=== PATIENT | female | born 1980 | race Caucasian/White ===

== ENCOUNTER 2019-03-03 12:17 | Emergency (ER) | payer MEDICAID, SELFPAY ==
[2019-03-03 12:17] VITALS: BP 130/87; PULSE 91; RESP 18; TEMP 36.6; O2SAT 96; BMI 45.4
[2019-03-03 13:56] LABS: Absolute Lymphocyte Count 2.16 X10^3/uL (0.83-4.51); Absolute Neutrophil Count 6.6 X10^3/uL (2.0-7.7); Basophil# 0.04 X10^3/uL; Basophil% 0.4 % (0-1); Eosinophil# 0.19 X10^3/uL; Hematocrit 38.1 % (37-47); Hemoglobin 12.7 g/dL (12.0-15.0); Lymphocyte # 2.16 X10^3/ul (4.0); Lymphocyte % 22.9 % (19-41); Mean Corp Hgb Conc 33.3 g/dL (32-36); Mean Corpuscular Hgb 26.6 pg (27.0-32.0); Mean Corpuscular Volume 79.9 fL (81-99); Mean Platelet Vol. 10.3 fl (6.2-12.0); Monocyte# 0.36 X10^3/uL; Monocyte% 3.8 % (0-10); NRBC Flagged by Analyzer 0 % (0-5); Neutrophil # 6.61 X10^3/uL (2.7-7.7); Neutrophil % 70.1 % (47-70); POSITIVE COUNT YES; Platelet Count 217 K/mm3 (150-450); RBC Distribution Width CV 13.6 % (11.6-14.6); RBC Distribution Width SD 38.7 fl (35.1-43.9); Red Blood Count 4.77 M/mm3 (4.2-5.4); White Blood Count 9.4 K/mm3 (4.4-11.0)
[2019-03-03 13:58] LABS: Differential Indicated SCAN CRITERIA MET
[2019-03-03 14:05] LABS: ALB/GLOB Ratio 0.9 RATIO (0.9-2.4); AST(SGOT) 9 U/L (15-37); Alanine Aminotransfer ALT/SGPT 18 U/L (13-56); Albumin, Serum 3.4 g/dL (3.2-5.0); Alkaline Phosphatase 158 U/L (45-117); Anion Gap 6 (5-15); BUN 7 mg/dL (7-18); Chloride 105 mmol/L (98-107); Creatinine, Serum 0.64 mg/dL (0.55-1.02); EST Glomerular Filtration Rate 109 mL/min (>60); Est Glom Filt Rate - Afr Amer 132 mL/min (>60); Estimated Creatinine Clearance 95.69 ml/min; Globulin 3.9 g/dL (2.2-4.2); Glucose 183 mg/dL (74-106); Lipase 92 U/L (73-393); Potassium 3.7 mmol/L (3.5-5.1); Protein, Total 7.3 g/dL (6.4-8.2); Sodium Level 139 mmol/L (136-145)
[2019-03-03] MEDS: Ondansetron 4 MG/2 ML Vial IV (14:08)
[2019-03-03] MEDS: Morphine 4 MG/ML Syringe IV (14:08)
[2019-03-03] MEDS: 0.9% Normal Saline 1,000 ML 1000 ML IV (14:08)
--- NOTE | 2019-03-03 14:11 | ED.VIS.GEN ---
History of Present Illness Chief Complaint: Back Informant: Patient Onset: Yesterday Context: Gradual Onset Timing: Continuous Narrative: Patient is a 39-year-old female with history of bladder infections, diabetes mellitus and depression presenting with decreased urination, lower abdominal pain and lower back pain. She states her symptoms are last night. She is associated nausea but no vomiting. She states her bowel movements been normal. She is had burning with urination. She describes the pain as sharp. It does not radiate. Last night she took ibuprofen, Pyridium and Tylenol with no significant relief of her symptoms. She denies any numbness of her legs, fever or incontinence. She notes she sometimes has some stress incontinence which is chronic when she coughs. This is unchanged. She did urinate this morning but notes that there was less urine. Patient denies any other complaints at this time. Past Medical History - Allergies and Home Meds Allergies/Adverse Reactions: Allergies brompheniramine maleate [From Dimetapp (brompheniramine-PPA)] Allergy (Verified 03/03/19 12:19) Rash bupropion [From Wellbutrin] Allergy (Verified 03/03/19 12:19) Other phenylpropanolamine HCl [From Dimetapp (brompheniramine-PPA)] Allergy (Verified 03/03/19 12:19) Rash prochlorperazine [From Compazine] Allergy (Verified 03/03/19 12:19) Other prochlorperazine edisylate [From Compazine] Allergy (Verified 03/03/19 12:19) Other prochlorperazine maleate [From Compazine] Allergy (Verified 03/03/19 12:19) Other Primary Care Physician: Jeanette Cortes PA [Primary Care Provider] - Past Medical History: - - Diabetes mellitus, depression, history of bladder infections Surgical History: hysterectomy, tonsillectomy, - - Bladder mesh Smoking Status: Never smoker Review of Systems General: Denies: Chills, Fever, Sweats Eyes: Denies: Visual changes - bilaterally, Diplopia ENT: Denies: Rhinorrhea, Sore throat Cardiovascular: Denies: Chest pain, Palpitations Respiratory: Denies: Dyspnea, Cough, Dyspnea on exertion Gastrointestinal: Reports: Abdominal pain, Nausea. Denies: Vomiting, Diarrhea, Constipation, Melena, Hematochezia Genitourinary: Reports: Dysuria, - - Decreased urination. Denies: Hematuria, Frequency Musculoskeletal: Reports: Back pain. Denies: Extremity Pain Skin: Denies: Rash, Wounds Neurological: Denies: Headache, Weakness, Numbness Physical Exam Vital Signs/Narrative: Vital Signs Temp Pulse Resp BP Pulse Ox 03/03/19 12:17 97.8 F 91 18 130/87 H 96 Inital Vital Signs reviewed: Yes General: Well nourished, Well developed, No Acute Distress Head: Normocephalic, Atraumatic Eyes: Perrl, EOMI ENT: Moist mucous membranes, No rhinorrhea Neck: Supple, Nontender Cardiovascular: Regular rate, Regular rhythm, No murmurs Respiratory: No distress, CTA bilaterally, Chest nontender Abdomen: Soft, Nontender, Nondistended, Normal bowel sounds, Tender - Suprapubic region as well as left upper quadrant. Negative for: Guarding, Rebound tenderness Back: Nontender, Normal Inspection. Negative for: CVA tenderness, Spinal tenderness Extremities: Nontender, No edema Skin: Normal color, No rash Neurological: Alert, Oriented x3, Cranial nerves II-XII grossly intact, Normal Strength, Normal Sensation Psychological: Normal affect, Normal Mood Diagnostic/Tx/Re-eval Laboratory Data 03/03/19 03/03/19 03/03/19 13:18 13:18 15:30 WBC 9.4 RBC 4.77 Hgb 12.7 Hct 38.1 MCV 79.9 L MCH 26.6 L MCHC 33.3 RDW Std Deviation 38.7 RDW Coeff of Samantha 13.6 Plt Count 217 MPV 10.3 Immature Gran % (Auto) 0.800 Neut % (Auto) 70.1 H Lymph % (Auto) 22.9 Loving % (Auto) 3.8 Eos % (Auto) 2.0 Baso % (Auto) 0.4 Absolute Neuts (auto) 6.6 Absolute Lymphs (auto) 2.16 Nucleated RBC % 0 Sodium 139 Potassium 3.7 Chloride 105 Carbon Dioxide 28.0 Anion Gap 6 BUN 7 Creatinine 0.64 Estim Creat Clear Calc 95.69 Est GFR (MDRD) Af Amer 132 Est GFR (MDRD) Non-Af 109 BUN/Creatinine Ratio 11.0 Glucose 183 H Calcium 9.0 Total Bilirubin 0.30 AST 9 L ALT 18 Alkaline Phosphatase 158 H Total Protein 7.3 Albumin 3.4 Globulin 3.9 Albumin/Globulin Ratio 0.9 Lipase 92 Urine Color Yellow Urine Clarity Sl. Cloudy Urine pH 5.0 Ur Specific [place] 1.025 Urine Protein 15 H Urine Glucose (UA) 100 H Urine Ketones Negative Urine Occult Blood Negative Urine Nitrite Positive H Urine Bilirubin Negative Urine Urobilinogen Normal Ur Leukocyte Esterase Negative Urine RBC 0 SEEN Urine WBC 0-5 SEEN Ur Squamous Epith Cells 0-5 SEEN Amorphous Sediment 1+ URATE Urine Bacteria 2+ Urine Mucus 0 SEEN - Medical Decision Making Patient is evaluate her abdominal pain. She has associated urinary symptoms and low back pain. Her presentation sounds like a urinary tract infection. Bladder scan was performed and she only has 150 cc of urine in the bladder. I do not think this is acute urinary retention. While patient is having significant pain her vital signs are normal. Her white blood cell count is normal. Her abdomen is soft but she does have lower abdominal tenderness. She does have CVA tenderness. Patient is given morphine and then Dilaudid for pain control in the emergency room. Urinalysis does show nitrates and bacteria. Likely this is a urinary tract infection. Patient will be started on Keflex. Urine culture is sent. She is put on a 7-day course to cover for possible early pyelonephritis. She is given a short course of [place] for pain control at home. She is also prescribed on a dose of Diflucan as she states she is prone to yeast infections after antibiotics. Patient is counseled on signs and symptoms require return emergency room. She verbalizes agreement understand this plan. She discharged home in stable condition. ED Disposition - Plan for ED Patient: Disposition: Home or Assisted Living Diagnosis: UTI (urinary tract infection), Abdominal pain Instructions: Bladder Infection, Female (Adult) Prescriptions: Fluconazole [Diflucan] 150 mg PO X1 #1 tab Transmission Status: Received by [id number] Cephalexin [Keflex] 500 mg PO BID #14 cap Transmission Status: Received by [facility] [id number] Hydrocodone Bitart/Apap 5-325 [[place] 5MG-325MG] 1 tab PO Q6H PRN PRN 2 Days #10 tab PRN Reason: Pain Transmission Status: Received by [facility] [id number] Phenazopyridine HCl [Pyridium] 200 mg PO TID PRN #6 tab PRN Reason: pain with urination Transmission Status: Received by [id number] Referrals: Jeanette Cortes PA [Primary Care Provider] - Additional Instructions: Please return the emergency room if you have worsening symptoms. Your work-up was normal except for findings consistent with urinary tract infection. Please follow-up with your primary care doctor next week for reevaluation.
[2019-03-03 14:24] VITALS: BP 126/69; PULSE 78; RESP 16; O2SAT 99
[2019-03-03] MEDS: HYDROmorphone 0.5 MG/0.5 ML SYRINGE IV (15:32)
[2019-03-03 15:35] LABS: Mucous, Urine 0 SEEN /hpf (<or=2+); Red Blood Cells-Urine 0 SEEN /hpf (0-5)
[2019-03-03 15:38] LABS: Color, Urine Yellow (Yellow); Glucose, Dipstick 100 mg/dl (Normal); Ketone-Dipstick Negative (Negative); Leukocyte Esterase-Dipstick Negative /ul (Negative); Nitrite-Dipstick Positive (Negative); Occult Blood-Urine Negative /ul (Negative); Protein-Dipstick 15 mg/dl (Negative); Specific Gravity, Urine 1.025 (1.002-1.030); Urine Bilirubin Dipstick Negative (Negative); Urine Clarity Sl. Cloudy (Clear); Urine Urobilinogen Normal (Normal)
[2019-03-03 15:50] LABS: Amorphous Sediment 1+ URATE; Bacteria 2+ /hpf (None Seen); Squamous Epithelial Cells - UA 0-5 SEEN /hpf (5-10); White Blood Cells 0-5 SEEN /hpf (0-5)
[2019-03-03 17:01] VITALS: BP 137/84; PULSE 78; RESP 16; O2SAT 98
[2019-03-03] MEDS: Cephalexin 250 MG Capsule 500 MG PO (17:22)
== END 2019-03-03 17:23 | disposition home or self-care (01) ==
PROVIDERS: Emergency Provider Emergency Medicine; Family Provider Physician Assistant Medical; PCP Physician Assistant Medical
DX: N39.0 Urinary tract infection, site not specified (principal); R10.12 Left upper quadrant pain; E11.9 Type 2 diabetes mellitus without complications; F32.9 Major depressive disorder, single episode, unspecified; Z79.4 Long term (current) use of insulin; Z79.84 Long term (current) use of oral hypoglycemic drugs; Z87.440 Personal history of urinary (tract) infections
CPT/HCPCS: 80053; 81001; 83690; 85025; 96361; 96374; 96375; 99285; J7030; P9612; A4216; J2405

== ENCOUNTER 2019-03-18 16:28 | Emergency (ER) | payer MEDICAID, SELFPAY ==
[2019-03-18 16:29] VITALS: BP 133/111; PULSE 90; RESP 17; TEMP 36.7; O2SAT 98; BMI 44.4
[2019-03-18 16:40] LABS: Bedside Glucose 201 mg/dL (70-110)
--- NOTE | 2019-03-18 17:21 | EKG12_ITS ---
Test Reason : GEN ILLNESS Blood Pressure : / mmHG Vent. Rate : 070 BPM Atrial Rate : 070 BPM P-R Int : 154 ms QRS Dur : 076 ms QT Int : 410 ms P-R-T Axes : 031 -12 026 degrees QTc Int : 442 ms Normal sinus rhythm with sinus arrhythmia Minimal voltage criteria for LVH, may be normal variant Borderline ECG Confirmed by JAMIE WASHINGTON, VIVIAN ([id number]), script editor DALLIN HASTINGS ([id number]) on 03/21/2019 12:16:59 PM Referred By: BRADEN Confirmed By:VIVIAN AYALA MD
--- NOTE | 2019-03-18 17:25 | RAD_ITS ---
STUDY: X-RAY CHEST REASON FOR EXAM: Female, 39 years old. DIZZINESS AND HYPERTENSION TECHNIQUE: Single AP portable view of the chest. COMPARISON: None. FINDINGS: The lungs are clear and expanded. There is no demonstrated pleural abnormality. Normal size heart. Normal mediastinum and cassie. Normal visualized pulmonary arteries. Normal visualized aortic arch and descending thoracic aorta. Normal visualized thoracic spine. Normal visualized ribs, clavicles, and shoulders. There is no demonstrated abnormality of the visualized soft tissue structures of the upper abdomen. RAD/Chest 1 View (Portable) IMPRESSION: Normal x-ray examination of the chest. Electronically Signed: Gilson Renteria DO at 17:50 EST Tel , Service support ,
--- NOTE | 2019-03-18 17:32 | ED.RN ---
NO OLD EKGS
[2019-03-18] MEDS: 0.9% Normal Saline 1,000 ML 1000 ML IV (17:42)
[2019-03-18] MEDS: Ketorolac 15 MG/ML Vial IV (17:42)
[2019-03-18 17:59] LABS: Absolute Lymphocyte Count 2.73 X10^3/uL (0.83-4.51); Absolute Neutrophil Count 7.1 X10^3/uL (2.0-7.7); Basophil# 0.04 X10^3/uL; Basophil% 0.4 % (0-1); Eosinophil# 0.17 X10^3/uL; Eosinophils% 1.6 % (0-5); Hematocrit 41.1 % (37-47); Hemoglobin 13.8 g/dL (12.0-15.0); Lymphocyte # 2.73 X10^3/ul (4.0); Lymphocyte % 25.9 % (19-41); Mean Corp Hgb Conc 33.6 g/dL (32-36); Mean Corpuscular Hgb 26.7 pg (27.0-32.0); Mean Corpuscular Volume 79.5 fL (81-99); Mean Platelet Vol. 9.5 fl (6.2-12.0); Monocyte# 0.43 X10^3/uL; Monocyte% 4.1 % (0-10); NRBC Flagged by Analyzer 0 % (0-5); Neutrophil # 7.12 X10^3/uL (2.7-7.7); Neutrophil % 67.6 % (47-70); Platelet Count 293 K/mm3 (150-450); RBC Distribution Width CV 13.3 % (11.6-14.6); RBC Distribution Width SD 37.9 fl (35.1-43.9); Red Blood Count 5.17 M/mm3 (4.2-5.4); White Blood Count 10.5 K/mm3 (4.4-11.0)
[2019-03-18] MEDS: Metoclopramide 10 MG/2 ML Vial 5 MG IV (18:07)
[2019-03-18 18:18] LABS: Anion Gap 6 (5-15); BUN 11 mg/dL (7-18); BUN/Creat Ratio 13.9 RATIO (10-20); Calcium,Total 9.5 mg/dL (8.5-10.1); Chloride 104 mmol/L (98-107); Creatinine, Serum 0.79 mg/dL (0.55-1.02); EST Glomerular Filtration Rate 85 mL/min (>60); Est Glom Filt Rate - Afr Amer 103 mL/min (>60); Estimated Creatinine Clearance 77.52 ml/min; Glucose 186 mg/dL (74-106); Potassium 3.5 mmol/L (3.5-5.1); Sodium Level 139 mmol/L (136-145)
[2019-03-18 18:32] LABS: hCG Titer Quant., Serum < 1 mIU/mL (1-3)
--- NOTE | 2019-03-18 18:53 | ED.DCSUM_ITS ---
History of Present Illness Chief Complaint: General Illness Informant: Patient Onset: Today Context: Sudden Onset Narrative: Patient is a 39-year-old female with history of diabetes mellitus and depression presenting with headache and presyncope. Patient states she was at work today when she had a headache. She states is typical of her to have headaches and this is abnormal 1 for her. She denies any associated photophobia. She states that she was trying to work she was feeling very hot and sweaty and felt like she might pass out. She checked her blood sugar at work and was 119 her blood pressure was elevated at 155/114. Repeat blood pressure was 145/100. Patient states she still feels nauseous and will shaky. She states she has had prior episodes with her sugars been out of control. Patient denies any associated vision changes, vomiting, chest pain, shortness of breath, fever, myalgias or urinary symptoms. She states she is had normal bowel movements. Her main complaint seems to be her headache at this point. She denies any other complaints at this time. Past Medical History - Allergies and Home Meds Allergies/Adverse Reactions: Allergies brompheniramine maleate [From Dimetapp (brompheniramine-PPA)] Allergy (Verified 03/18/19 16:28) Rash bupropion [From Wellbutrin] Allergy (Verified 03/18/19 16:28) Other phenylpropanolamine HCl [From Dimetapp (brompheniramine-PPA)] Allergy (Verified 03/18/19 16:28) Rash prochlorperazine [From Compazine] Allergy (Verified 03/18/19 16:28) Other prochlorperazine edisylate [From Compazine] Allergy (Verified 03/18/19 16:28) Other prochlorperazine maleate [From Compazine] Allergy (Verified 03/18/19 16:28) Other Primary Care Physician: Jeanette Cortes PA [Primary Care Provider] - Past Medical History: - - Diabetes mellitus type II, gastroparesis, depression Surgical History: hysterectomy, tonsillectomy, - - Bladder mesh Smoking Status: Never smoker Review of Systems General: Reports: Sweats. Denies: Chills, Fever Eyes: Denies: Visual changes - bilaterally, Diplopia ENT: Denies: Rhinorrhea, Sore throat Cardiovascular: Denies: Chest pain, Palpitations Respiratory: Denies: Dyspnea, Cough, Dyspnea on exertion Gastrointestinal: Reports: Nausea. Denies: Abdominal pain, Vomiting, Diarrhea, Melena, Hematochezia Genitourinary: Denies: Dysuria, Hematuria, Frequency Musculoskeletal: Denies: Back pain, Extremity Pain Skin: Denies: Rash, Wounds Neurological: Denies: Headache, Weakness, Numbness Physical Exam Vital Signs/Narrative: Vital Signs Temp Pulse Resp BP Pulse Ox 03/18/19 16:29 98.1 F 90 17 133/111 H 98 Inital Vital Signs reviewed: Yes General: Well nourished, Well developed, Obese, No Acute Distress Head: Normocephalic, Atraumatic Eyes: Perrl, EOMI ENT: Moist mucous membranes, No rhinorrhea Neck: Supple, Nontender Cardiovascular: Regular rate, Regular rhythm, No murmurs Respiratory: No distress, CTA bilaterally, Chest nontender Abdomen: Soft, Nontender, Nondistended, Normal bowel sounds, No masses. Negative for: Guarding, Rebound tenderness Back: Nontender, Normal Inspection. Negative for: CVA tenderness Extremities: Nontender, No edema Skin: Normal color, No rash Neurological: Alert, Oriented x3, Cranial nerves II-XII grossly intact, Normal Strength, Normal Sensation Psychological: Normal affect, Normal Mood Diagnostic/Tx/Re-eval Clinical Impression(s) from Imaging Studies Chest X-Ray 03/18/19 17:25 IMPRESSION: Normal x-ray examination of the chest. Electronically Signed: Gilson Renteria DO at 17:50 EST Tel , Service support , Laboratory Data 03/18/19 03/18/19 03/18/19 16:34 17:50 17:50 WBC 10.5 RBC 5.17 Hgb 13.8 Hct 41.1 MCV 79.5 L MCH 26.7 L MCHC 33.6 RDW Std Deviation 37.9 RDW Coeff of Samantha 13.3 Plt Count 293 MPV 9.5 Immature Gran % (Auto) 0.400 Neut % (Auto) 67.6 Lymph % (Auto) 25.9 Patrick % (Auto) 4.1 Eos % (Auto) 1.6 Baso % (Auto) 0.4 Absolute Neuts (auto) 7.1 Absolute Lymphs (auto) 2.73 Nucleated RBC % 0 Sodium 139 Potassium 3.5 Chloride 104 Carbon Dioxide 29.0 Anion Gap 6 BUN 11 Creatinine 0.79 Estim Creat Clear Calc 77.52 Est GFR (MDRD) Af Amer 103 Est GFR (MDRD) Non-Af 85 BUN/Creatinine Ratio 13.9 Glucose 186 H Calcium 9.5 Total Bilirubin Direct Bilirubin AST ALT Alkaline Phosphatase Troponin I < 0.015 Total Protein Albumin Globulin Lipase HCG, Quant Urine Color Urine Clarity Urine pH Ur Specific [place] Urine Protein Urine Glucose (UA) Urine Ketones Urine Occult Blood Urine Nitrite Urine Bilirubin Urine Urobilinogen Ur Leukocyte Esterase Urine RBC Urine WBC Ur Squamous Epith Cells Urine Bacteria Urine Mucus POC Glucose 201 H 03/18/19 03/18/19 03/18/19 17:50 17:50 17:50 WBC RBC Hgb Hct MCV MCH MCHC RDW Std Deviation RDW Coeff of Samantha Plt Count MPV Immature Gran % (Auto) Neut % (Auto) Lymph % (Auto) Patrick % (Auto) Eos % (Auto) Baso % (Auto) Absolute Neuts (auto) Absolute Lymphs (auto) Nucleated RBC % Sodium Potassium Chloride Carbon Dioxide Anion Gap BUN Creatinine Estim Creat Clear Calc Est GFR (MDRD) Af Amer Est GFR (MDRD) Non-Af BUN/Creatinine Ratio Glucose Calcium Total Bilirubin 0.20 Direct Bilirubin 0.08 AST 10 L ALT 21 Alkaline Phosphatase 181 H Troponin I Total Protein 8.0 Albumin 3.9 Globulin 4.1 Lipase 111 HCG, Quant < 1 Urine Color Urine Clarity Urine pH Ur Specific [place] Urine Protein Urine Glucose (UA) Urine Ketones Urine Occult Blood Urine Nitrite Urine Bilirubin Urine Urobilinogen Ur Leukocyte Esterase Urine RBC Urine WBC Ur Squamous Epith Cells Urine Bacteria Urine Mucus POC Glucose 03/18/19 19:50 WBC RBC Hgb Hct MCV MCH MCHC RDW Std Deviation RDW Coeff of Samantha Plt Count MPV Immature Gran % (Auto) Neut % (Auto) Lymph % (Auto) Patrick % (Auto) Eos % (Auto) Baso % (Auto) Absolute Neuts (auto) Absolute Lymphs (auto) Nucleated RBC % Sodium Potassium Chloride Carbon Dioxide Anion Gap BUN Creatinine Estim Creat Clear Calc Est GFR (MDRD) Af Amer Est GFR (MDRD) Non-Af BUN/Creatinine Ratio Glucose Calcium Total Bilirubin Direct Bilirubin AST ALT Alkaline Phosphatase Troponin I Total Protein Albumin Globulin Lipase HCG, Quant Urine Color Yellow Urine Clarity Sl. Cloudy Urine pH 5.0 Ur Specific [place] 1.025 Urine Protein 30 H Urine Glucose (UA) 1000 H Urine Ketones 5 H Urine Occult Blood Negative Urine Nitrite Negative Urine Bilirubin Negative Urine Urobilinogen Normal Ur Leukocyte Esterase Negative Urine RBC 0 SEEN Urine WBC 0-5 SEEN Ur Squamous Epith Cells 5-10 SEEN Urine Bacteria 0 SEEN Urine Mucus 0 SEEN POC Glucose - Rhythm Strip Rhythm Strip: Sinus Rhythm Rate: 70 Ectopy: None - EKG Initial EKG Interpretation: Sinus Rhythm, - - Sinus rhythm at a rate of 70 Normal intervals Left axis deviation Normal ST segments - Medical Decision Making Patient is evaluated for an episode of dizziness and feeling sweaty at work. Also complaining of nausea and headache. Patient states she has a history of headaches and this is her typical headache. She has a normal neurologic exam I do not think a CT of the brain is indicated. She does not have meningeal signs. Patient is given Toradol, Reglan and Benadryl. After patient receives the Benadryl and about an hour after receiving the Reglan patient becomes very jittery. Likely she is having akathisia's. Patient is then given a dose of benztropine. On reevaluation she states her headache has improved and she is feeling less antsy. She is now complaining of more nausea. Patient is requesting Phenergan. She is given a dose of this. She is not having any abdominal pain and her abdomen is still benign on exam. Patient then mentions that she actually has a history of gastroparesis. Likely her nausea is from her gastroparesis. Patient has a normal CBC, CMP and lipase. Urinalysis not show any signs of infection. I do not think imaging of her abdomen is indicated at this time as she does not have any pain or laboratory abnormalities. On reevaluation patient states she is feeling better and is ready to go home as she wants to go eat dinner. She is given IV fluids as well in the emergency room. Patient is counseled on signs and symptoms requiring return the emergency room. She is given a dose of Bentyl prior to discharge. She is discharged home with a prescription for Zofran, Phenergan and Bentyl. Patient is counseled on signs and symptoms requiring return to the emergency room. Patient verbalizes agreement and understand this plan. Patient discharged home in stable and improved condition. ED Disposition - Plan for ED Patient: Disposition: Home or Assisted Living Diagnosis: Dizziness, Nausea Instructions: DIZZINESS, Unk Cause, ED Diabetic Gastroparesis Prescriptions: Dicyclomine HCl [Bentyl] 20 mg PO TIDAC #20 cap Transmission Status: Received by [facility] [id number] proMETHazine tablet [Phenergan] 25 mg PO Q6H PRN PRN #10 tab PRN Reason: Nausea Transmission Status[facility] Ondansetron [Zofran Odt] 4 mg PO Q8H PRN PRN #10 tab PRN Reason: Nausea Transmission Status[id number] Referrals: Jeanette Cortes PA [Primary Care Provider] - Additional Instructions: Your work-up today including EKG, cardiac markers, kidney function, liver function and signs of infection were all normal. Your glucose is only mildly elevated. He did not have a urinary tract infection. Possible that your symptoms are an exacerbation of your gastroparesis. At this time I think you are safe to follow-up outpatient. Please return the emergency room with any worsening symptoms.
[2019-03-18] MEDS: DiphenhydrAMINE 50 MG/ML Syringe 25 MG IV (18:54)
[2019-03-18] MEDS: Ondansetron 4 MG/2 ML Vial IV (18:55)
[2019-03-18 20:00] LABS: Bacteria 0 SEEN /hpf (None Seen); Mucous, Urine 0 SEEN /hpf (<or=2+); Red Blood Cells-Urine 0 SEEN /hpf (0-5)
[2019-03-18 20:22] LABS: Color, Urine Yellow (Yellow); Glucose, Dipstick 1000 mg/dl (Normal); Ketone-Dipstick 5 mg/dl (Negative); Leukocyte Esterase-Dipstick Negative /ul (Negative); Nitrite-Dipstick Negative (Negative); Occult Blood-Urine Negative /ul (Negative); Protein-Dipstick 30 mg/dl (Negative); Specific Gravity, Urine 1.025 (1.002-1.030); Urine Bilirubin Dipstick Negative (Negative); Urine Clarity Sl. Cloudy (Clear); Urine Urobilinogen Normal (Normal)
[2019-03-18] MEDS: proMETHazine 25 MG/ML Syringe 12.5 MG IV (20:31)
[2019-03-18 20:34] VITALS: BP 118/77; PULSE 88; RESP 16; O2SAT 96
[2019-03-18 20:51] LABS: Lipase 111 U/L (73-393)
[2019-03-18 20:52] LABS: Squamous Epithelial Cells - UA 5-10 SEEN /hpf (5-10); White Blood Cells 0-5 SEEN /hpf (0-5)
[2019-03-18 20:54] LABS: AST(SGOT) 10 U/L (15-37); Alanine Aminotransfer ALT/SGPT 21 U/L (13-56); Albumin, Serum 3.9 g/dL (3.2-5.0); Alkaline Phosphatase 181 U/L (45-117); Bilirubin, Direct 0.08 mg/dL (0.00-0.30); Globulin 4.1 g/dL (2.2-4.2)
[2019-03-18] MEDS: Dicyclomine 10 MG Capsule 20 MG PO (21:14)
[2019-03-18 21:17] VITALS: BP 118/77; PULSE 88; RESP 16; O2SAT 96
== END 2019-03-18 21:24 | disposition home or self-care (01) ==
PROVIDERS: Emergency Provider Emergency Medicine; PCP Physician Assistant Medical
DX: R42 Dizziness and giddiness (principal); R11.0 Nausea; E11.9 Type 2 diabetes mellitus without complications; F32.9 Major depressive disorder, single episode, unspecified; E66.9 Obesity, unspecified; Z79.4 Long term (current) use of insulin; Z79.84 Long term (current) use of oral hypoglycemic drugs
CPT/HCPCS: 71045; 80048; 80076; 81001; 82962; 83690; 84484; 84702; 85025; 93005; 96361; 96374; 96375; 99285; J7030; A4216; J2405

== ENCOUNTER 2022-10-11 11:17 | Emergency (ER) | payer MEDICAID, SELFPAY ==
[2022-10-11 11:19] VITALS: BP 155/86; PULSE 86; RESP 18; TEMP 35.8; O2SAT 98
--- NOTE | 2022-10-11 11:33 | EDS_ITS ---
HPI History of Present Illness Chief Complaint: Wound PFSH [facility] Medical History (Updated 09/22/21 @ 11:35 by Lizzeth Banks) Anxiety and depression Diabetes type 2, controlled GERD (gastroesophageal reflux disease) Headache, migraine High cholesterol IBS (irritable bowel syndrome) Neuropathy surgery of the r toe Home Medications omeprazole 20 mg capsule,delayed release 1 cap PO DAILY 03/10/16 [History Last Taken Unknown] cetirizine 10 mg capsule 10 mg PO QDAY 02/25/17 [History Last Taken Unknown] citalopram 40 mg tablet (Celexa) 40 mg PO QDAY 02/25/17 [History Last Taken Unknown] gabapentin 300 mg capsule 300 mg PO TID 02/25/17 [History Last Taken Unknown] glimepiride 2 mg tablet 2 mg PO QAM #30 tabs 02/25/17 [Rx Last Taken Unknown] hydroxyzine HCl 10 mg tablet 10 mg PO .q hs PRN Anxiety 02/25/17 [History Last Taken Unknown] insulin glargine 100 unit/mL (3 mL) subcutaneous pen ([place] [employer] U-100 Insulin) See Rx Instructions subcut BID #15 mL 02/25/17 [Rx Last Taken Unknown] metformin 1,000 mg tablet 1,000 mg PO DAILY #30 tabs 02/25/17 [Rx Last Taken Unknown] multivitamin 1 tab PO QAM 02/25/17 [History Last Taken Unknown] cephalexin 500 mg capsule 500 mg PO BID #14 caps 03/03/19 [Rx Last Taken Unknown] fluconazole 150 mg tablet 150 mg PO X1 #1 TAB 03/03/19 [Rx Last Taken Unknown] phenazopyridine 200 mg tablet 200 mg PO TID PRN pain with urination #6 tabs 03/03/19 [Rx Last Taken Unknown] dicyclomine 10 mg capsule 20 mg (2 x 10 mg) PO TIDAC #20 caps 03/18/19 [Rx Last Taken Unknown] ondansetron 4 mg disintegrating tablet 4 mg PO Q8H PRN PRN Nausea #10 tabs 03/18/19 [Rx Last Taken Unknown] promethazine 25 mg tablet 25 mg PO Q6H PRN PRN Nausea #10 tabs 03/18/19 [Rx Last Taken Unknown] Allergy/AdvReac Type Severity Reaction Status Date / Time brompheniramine maleate Allergy Rash Verified 03/18/19 16:28 [From Dimetapp (brompheniramine-PPA)] bupropion [From Wellbutrin] Allergy Other Verified 03/18/19 16:28 phenylpropanolamine HCl Allergy Rash Verified 03/18/19 16:28 [From Dimetapp (brompheniramine-PPA)] prochlorperazine Allergy Other Verified 03/18/19 16:28 [From Compazine] prochlorperazine edisylate Allergy Other Verified 03/18/19 16:28 [From Compazine] prochlorperazine maleate Allergy Other Verified 03/18/19 16:28 [From Compazine] Family History Mother Asthma Diabetes Cancer Sister Asthma Diabetes Social History (Updated 03/01/17 @ 11:47 by Carolin Motta BLOW TORCH OPERATOR, BLOW TORCH OPERATOR-C) Smoking Status: Never smoker second hand exposure: Yes alcohol intake: never substance use type: does not use EXAM Physical Exam Const Vital Signs: 10/11/22 11:19 Temperature 96.5 F L Temperature Source Temporal Pulse Rate 86 Respiratory Rate 18 Blood Pressure 155/86 H Blood Pressure Mean 109 Pulse Ox 98 Oxygen Delivery Method Room Air MDM MDM MDM Narrative Medical decision making narrative: HISTORY OF PRESENT ILLNESS: 42-year-old female here with chronic wound to the right foot. Notes over the last year. States she is followed podiatry however the mud analysis supervisor has not met her expectations. She states she has neuropathy and cannot feel her leg well which is chronic. Denies history of peripheral vascular disease or DVT. States last day she thinks is gotten worse she thinks it could be infected REVIEW OF SYSTEMS: Pertinent positives: Right foot wound Pertinent negatives: fever, vomiting. PHYSICAL EXAM: Nursing triage notes reviewed, Vital signs reviewed Constitutional: please see mdm Lungs: Clear to auscultation, No wheezing or rales. No increased work of breathing, no conversational dyspnea, no accessory muscle use, no nasal flaring. No respiratory distress noted Heart: Regular rate and rhythm, No murmurs, No rubs and No gallops, 2+ distal pulses (radial, femoral, posterior tibial) in all extremities Abdomen: Soft, there is no tenderness, rigidity, rebound or guarding, no obvious peritoneal signs, no palpable pulsatile abdominal masses, no auscultated abdominal bruit Extremities: No edema Neuro: No focal neurological deficits, cranial nerves II through XII intact, 5/5 strength in all extremities. Intact sensation to light touch in all extremities, 2+ reflexes bilateral patella tendons. Normal gait. No ataxia. Skin: Chronic appearing wound to the plantar surface of the right foot, no erythema, no drainage, no fluctuance, no induration, the wound was not warm. MEDICAL DECISION MAKING: Chief Complaint: Chronic foot wound External records reviewed: No recent ED visits Factors affecting care: Type 2 diabetes, chronic foot wound Social determinants of health: none History obtained from others: The patient's daughter Consults: none ALL IMAGES (IF OBTAINED) HAVE BEEN PERSONALLY REVIEWED AND INTERPRETED BY MYSELF. MDM Narrative: Patient is hemodynamically stable, afebrile, nontoxic-appearing. I considered the following differential diagnosis: Cellulitis, necrotizing fasciitis, arterial occlusion Exam not consistent with cellulitis as there is no redness, warmth or drainage. There is no crepitus or bullae suggest necrotizing fasciitis, patient had symmetric pulses, good cap refill no evidence of arterial occlusion. Did offer the patient prophylactic antibiotics given history of diabetes and her high risk propensity for infections including history of MRSA. She stated she cannot take oral antibiotics because she gags on them. I did offer oral solution ant ibiotics and lieu of her not being able to take pills. She was discharged with close wound care follow-up The patient and/or family, caregivers express understanding. The patient and/or family, caregivers agrees with the plan. Shared decision making: I will have a discussion with the patient and or visitors regarding risk/benefits of further testing or admission. They will be made aware of of the risk/benefits inherent in this decision they will be given the opportunity to voice understanding. Total critical care time today provided was at least 0 minutes. This excludes separately billable procedures. Critical care time (if documented) is secondary to the patient having high probability of clinically significant/life threatening deterioration in the patient's condition which required my urgent intervention. Discharge Plan Triage Chief Complaint: Wound ED Provider: Randal Poole Dx/Rx/DC Orders Prescriptions: No Action metformin 1,000 MG tablet 1,000 mg PO DAILY Qty: 30 11RF glimepiride 2 mg tablet 2 mg PO QAM Qty: 30 5RF Rx Instructions: administer with breakfast. Start with 1/2 tablet for first few days insulin glargine [Basaglar KwikPen U-100 Insulin] 100 unit/mL (3 mL) insulin pen See Rx Instructions SC BID Qty: 15 11RF Dose Instruction: 20U q am and 30 U q hs SC BID Rx Instructions: 20U q am and 30 U q hs SC BID gabapentin 300 mg capsule 300 mg PO TID citalopram [Celexa] 40 mg tablet 40 mg PO QDAY cetirizine 10 mg capsule 10 mg PO QDAY hydroxyzine HCl 10 mg tablet 10 mg PO .q hs PRN (Reason: Anxiety) multivitamin tablet 1 tab PO QAM omeprazole 20 MG capsule,delayed release(DR/EC) 1 cap PO DAILY Patient Comments: cephalexin 500 MG capsule 500 mg PO BID Qty: 14 0RF fluconazole 150 MG tablet 150 mg PO X1 Qty: 1 0RF Rx Instructions: Take after completing antibiotics phenazopyridine 200 MG tablet 200 mg PO TID PRN (Reason: pain with urination) Qty: 6 0RF promethazine 25 MG tablet 25 mg PO Q6H PRN PRN (Reason: Nausea) Qty: 10 0RF ondansetron 4 MG tablet 4 mg PO Q8H PRN PRN (Reason: Nausea) Qty: 10 0RF dicyclomine 10 MG capsule 20 mg PO TIDAC Qty: 20 0RF Primary Care Provider: JENNIFER FRANKEL Referrals: Jeanette Cortes, PA [Non-Staff] -
[2022-10-11 11:40] VITALS: BMI 45.1
== END 2022-10-11 12:50 | disposition home or self-care (01) ==
PROVIDERS: Emergency Provider Emergency Medicine; PCP Student in an Organized Health Care Education/Training Program; Visit Provider Emergency Medicine
DX: S91.301A Unspecified open wound, right foot, initial encounter (principal); E11.40 Type 2 diabetes mellitus with diabetic neuropathy, unspecified; Z79.4 Long term (current) use of insulin; X58.XXXA Exposure to other specified factors, initial encounter; Z79.84 Long term (current) use of oral hypoglycemic drugs
CPT/HCPCS: 99282

== ENCOUNTER 2022-10-22 13:00 | Outpatient (RCR) | payer MEDICAID, SELFPAY ==
[2022-10-15 13:07] VITALS: BP 160/67; PULSE 68; RESP 16; BMI 44.2
--- NOTE | 2022-10-15 13:41 | PCM.WC.HP ---
History of Present Illness Date of Service: 10/15/22 Chief Complaint: Full-thickness ulceration, plantar foot, right foot History of Wound: Chronic wound for the last 6 months Progress of Wound: Mrs. Alcantar is a 42-year-old diabetic female presenting to the [facility] wound care center with a chief complaint of a plantar wound to the right foot. Patient is being a diabetic with a blood sugar today as tested in clinic 210 mg/dL. Her last A1c was about 10%. She has seen an outside termite control service representative who has been doing wound care as well as skin grafting to the area with out much success. Per the patient's words, she is ready to get this healed and done. She does have vascular studies and x-rays that will be requested. Negative for smoking. Positive for consuming edible marijuana. She is understanding of her condition. Past medical history is in chart. She denies trauma. Denies constitutional symptoms. No other pedal complaints at this time [facility] Medical History (Updated 10/11/22 @ 12:[address] Randal Poole, ) Anxiety and depression Diabetes type 2, controlled GERD (gastroesophageal reflux disease) Headache, migraine High cholesterol IBS (irritable bowel syndrome) Neuropathy surgery of the r toe Home Medications omeprazole 20 mg capsule,delayed release 1 cap PO DAILY 03/10/16 [History Last Taken Unknown] cetirizine 10 mg capsule 10 mg PO QDAY 02/25/17 [History Last Taken Unknown] citalopram 40 mg tablet (Celexa) 40 mg PO QDAY 02/25/17 [History Last Taken Unknown] gabapentin 300 mg capsule 300 mg PO TID 02/25/17 [History Last Taken Unknown] glimepiride 2 mg tablet 2 mg PO QAM #30 tabs 02/25/17 [Rx Last Taken Unknown] hydroxyzine HCl 10 mg tablet 10 mg PO .q hs PRN Anxiety 02/25/17 [History Last Taken Unknown] insulin glargine 100 unit/mL (3 mL) subcutaneous pen (Basaglar KwikPen U-100 Insulin) See Rx Instructions subcut BID #15 mL 02/25/17 [Rx Last Taken Unknown] metformin 1,000 mg tablet 1,000 mg PO DAILY #30 tabs 02/25/17 [Rx Last Taken Unknown] multivitamin 1 tab PO QAM 02/25/17 [History Last Taken Unknown] cephalexin 500 mg capsule 500 mg PO BID #14 caps 03/03/19 [Rx Last Taken Unknown] fluconazole 150 mg tablet 150 mg PO X1 #1 TAB 03/03/19 [Rx Last Taken Unknown] phenazopyridine 200 mg tablet 200 mg PO TID PRN pain with urination #6 tabs 03/03/19 [Rx Last Taken Unknown] dicyclomine 10 mg capsule 20 mg (2 x 10 mg) PO TIDAC #20 caps 03/18/19 [Rx Last Taken Unknown] ondansetron 4 mg disintegrating tablet 4 mg PO Q8H PRN PRN Nausea #10 tabs 03/18/19 [Rx Last Taken Unknown] promethazine 25 mg tablet 25 mg PO Q6H PRN PRN Nausea #10 tabs 03/18/19 [Rx Last Taken Unknown] clindamycin palmitate HCl 75 mg/5 mL oral solution 450 mg (30 mL) PO Q8H 7 days #630 mL 10/11/22 [Rx Last Taken Unknown] Allergy/AdvReac Type Severity Reaction Status Date / Time brompheniramine maleate Allergy Rash Verified 10/15/22 13:18 [From Dimetapp (brompheniramine-PPA)] bupropion [From Wellbutrin] Allergy Other Verified 10/15/22 13:18 phenylpropanolamine HCl Allergy Rash Verified 10/15/22 13:18 [From Dimetapp (brompheniramine-PPA)] prochlorperazine Allergy Other Verified 10/15/22 13:18 [From Compazine] prochlorperazine edisylate Allergy Other Verified 10/15/22 13:18 [From Compazine] prochlorperazine maleate Allergy Other Verified 10/15/22 13:18 [From Compazine] Family History Mother Asthma Diabetes Cancer Sister Asthma Diabetes Social History (Updated 03/01/17 @ 11:47 by Carolin Motta NP, [employer]-C) Smoking Status: Former smoker second hand exposure: Yes alcohol intake: never substance use type: does not use Vital Signs Vital Signs Vital Signs: 10/15/22 13:07 Temperature Source Temporal Pulse Rate 68 Respiratory Rate 16 Blood Pressure 160/67 H Blood Pressure Mean 98 Blood Pressure Source Monitor Blood Pressure Position Sitting Blood Pressure Location Right Arm Oxygen Delivery Method Room Air Weight Weight: 113.398 kg Body Mass Index (BMI) 44.2 Physical Exam Narrative Vascular: DP and PT pulses are palpable to the right lower extremity. CFT is brisk. Erythema appreciated to the second digit without proximal streaking. No increase in warmth noted. Neurological: Light touch intact. Responds to pain stimuli. Protective sensation is diminished. Dermatological: Full-thickness ulceration appreciated to the subsecond metatarsal head of the right foot. Wound is #granular nature with no malodor. There is no tunneling appreciated. No drainage. No erythema to periwound. Predebridement measurements of the right plantar wound measures 1.3 x 1.0 x 0.9 cm, postdebridement measurements 1.4 x 1.5 x 1.0 cm. Sanguinous drainage was noted after debridement. Musculoskeletal: Muscle strength is 5 out of 5 in all quadrants. Mild pain to palpation to the full-thickness ulceration to the subsecond metatarsal head. No pain with calf compression. Debridement Note Debridement Note Debridement Free Text: Full-thickness ulceration to the subsecond metatarsal head right foot was debrided down to and including subcutaneous tissue with 5 mm dermal curette without incident. Predebridement measurements were 1.3 x 1.0 x 0.9 cm, postdebridement measurements are 1.4 x 1.5 x 1.0 cm. Sanguinous drainage noted. The wound was packed with Briana, covered with Betadine paint and a dry sterile Band-Aid was donned. Offloading pads were dispensed to be applied to the patient's surgical shoe. Post-Debridement Measurements and Additional Note: Post-Debridement Measurements/Treatment - Nurse 1 - General Ulcer Assessment Start: 10/15/22 13:07 Freq: Status: Active Protocol: LOC.LOWEXT Activity Type Activity Date Activity User E-sign Co-sign Detail Recorded Client Recorded Date Recorded By Document 10/15/22 13:07 [facility] [id number] 10/15/22 13:15 [facility] 10/15/22 13:07 - Today's Visit Information Type of service Initial Visit Arrival Mode Ambulatory Transfer Assistance None Patient Identification Verified (Name & Yes ) Patient Requires Transmission-Based No Precautions Height and Weight Height 5 ft 3 in Weight 113.398 kg Weight in Pounds 250.0 lbs Body Mass Index (BMI) 44.2 BMI Classification Obese BSA - Rosamaria 2.13 Vital Signs Temperature Source Temporal Pulse Rate (60-100) 68 Pulse Location Monitor Respiratory Rate (12-18) 16 Respiratory rate source Observation Oxygen Delivery Method Room Air Blood Pressure (90/60-120/80) 160/67 H Blood Pressure Mean 98 Source Monitor Position Sitting Blood Pressure Location Right Arm History Since Last Visit- (Skip if this is Patient's initial visit) Left Footwear Regular Shoe Right Footwear Slipper Pain Scale: 0-10 Numeric Is Patient Pain Free? Yes Lower Extremity Assessment/ Foot Assessment/ Toe Nail Assessment Right -Lower Extremity Comment (If N/A Above PT HAD ARTERIAL ) STUDIES W/IN THE LAST COUPLE MONTHS DURING HOSPITAL STAY Left -Lower Extremity Comment (If N/A Above PT HAD ARTERIAL ) STUDIES WITHIN LAST COUPLE MONTHS Neuropathy Assessment Feet - Top Side and Bottom <Entered> (a) Communication Assessment Preferred language Kiswahili Manager Intermediate Required No Able to Read Yes Able to Write Yes Communication Tools None Right Hearing Abillity Normal Left Hearing Abillity Normal Visual Assistive Devices Glasses Teaching Assessment Preferences Verbal,Written, Audio/Visual, Demonstration Barriers to Learning None Readiness To Learn Excellent Willingness to Engage in Self Management High Activies Readiness to Engage in Self Management High Activities Anxiety Level Calm Cooperation Cooperative Perception Coherent Interest in Health Problem Asks Questions Education Importance Acknowledges Need Does Patient Smoke tobacco or other No substances Smoking Status Former smoker Is Patient Diabetic Yes Functional Assessment Recent Decline in Ability to Perform Denies Any Declines Culture/Roman Catholic/Access Assoc Cultural/Roman Catholic Needs that may affect No Treatment Plan (a) 1 - - 2 - + 3 - + 4 - + WC - Nurse 1 - General Ulcer Measurement Start: 10/15/22 13:07 Freq: Status: Active Protocol: Activity Type Activity Date Activity User E-sign Co-sign Detail Recorded Client Recorded Date Recorded By Document 10/15/22 13:07 [facility] [id number] 10/15/22 13:15 [facility] 10/15/22 13:07 Wound Center Nurse 1 #1- R PLANTAR FOOT -Combined with other wound No -Current Size (cm) - Length 1.3 -Current Size (cm) - Width 1 -Current Size (cm) - Depth 0.9 -Total Square Cm 1.3 -Date of Last Picture (Recall this 10/15/22 field) -Photo Taken Yes -Epithelialization None Present -Tunneling No -Undermining/Tunneling No -Circular Undermining No -Exudate Amt Medium -Exudate Type Serosanguineous -Wound Margin Distinct, Outline Attached -Granulation Amt Large (67-100%) -Granulation Quality Red -Slough/Fibrin Yes -Necrosis Amt Small (1-33%) -Necrotic Tissue Type Adherent Slough -Texture (Li-wound Skin Appearance) Assessed,Callus ,Scarring -Moisture (Li-wound Skin Appearance) Assessed,Dry/ Scaly -Color (Li-wound Skin Appearance) Assessed -Temperature (Li-wound Skin No Abnormality Appearance) (Pt Warm) -Tenderness on Palpation (Li-wound No Skin Appearance) -Ulcer Cleansing Soap and Water -Foul Odor after Cleansing No -Anesthetic Used 5% Lidocaine Gel Right Calf (cm) 41.5 Right Ankle (cm) 24.2 Left Calf (cm) 41 Left Ankle (cm) 22 WC - Nurse 2 - General Ulcer CM Notes Start: 10/15/22 13:07 Freq: Status: Active Protocol: Activity Type Activity Date Activity User E-sign Co-sign Detail Recorded Client Recorded Date Recorded By Document 10/15/22 13:28 AIDE [id number] 10/15/22 13:33 AIDE 10/15/22 13:28 Wound Center Nurse 2 #1- R PLANTAR FOOT -Time 13:29 -Correct Patient Yes -Correct Side, Site, Position Yes -Correct Procedure Yes -Procedure Performed Yes -Type of Procedure Debridement -Clinical Debridement Subcutaneous -Tissue Removed Subcutaneous -Post Debridement (cm) - Length 1.4 -Post Debridement (cm) - Width 1.5 -Post Debridement (cm) - Depth 0.1 -Total Square (Post) (cm) 2.10 -Area of Debridement (cm) - Length 1.4 -Area of Debridement (cm) - Width 1.5 -Total Square (Area) (cm) 2.10 -Tunneling No -Undermining/Tunneling No -Circular Undermining No -Wound/Ulcer Outcome Not Healed -Ulcer Cleansing Rinsed/ Irrigated with Saline -Foul Odor after Cleansing No -Bioengineered Tissue No -Bleeding Controlled with Pressure -Treatment Response Procedure Tolerated Well -Offloading Yes -Type of Offloading Surgical Shoe -Debridement - Subq, 1st 20sq cm Yes Pain Scale: 0-10 Numeric Is Patient Pain Free? Yes Assessment/Plan Assessment/Plan (1) Chronic wound: CODE(S): T14.8XXA - Other injury of unspecified body region, initial encounter PLAN: Patient was examined and evaluated. All findings were discussed with the patient. All questions were answered to the patient satisfaction. The patient's full-thickness ration was brought down to including subcutaneous tissue Using a 5 mm dermal curette. Predebridement measurements were 1.3 x 1.0 x 0.9 cm, postdebridement measurements are 1.4 x 1.5 x 1.0 cm. Segment strain are noted. Briana packing with Betadine paint and sterile Band-Aid applied. Offloading pads were also dispensed to the patient to place in her surgical shoe. Educated and discussed with the patient conservative or surgical treatment. She like to move forward after the wound is healed as well as getting her A1c down to around 9 surgical intervention which I agree with. We will continue to follow the patient at the wound care center and once able to move forward with surgery we will educate the patient with a surgical consultation at that time. Follow-up in 1 week for evaluation. (2) Type 2 diabetes mellitus with diabetic polyneuropathy, with long-term current use of insulin: CODE(S): E11.42 - Type 2 diabetes mellitus with diabetic polyneuropathy; Z79.4 - long-term (current) use of insulin (3) Overweight (BMI 25.0-29.9): CODE(S): E66.3 - Overweight
[2022-10-22 13:09] VITALS: BP 182/56; PULSE 66; RESP 16; TEMP 36; BMI 44.2
--- NOTE | 2022-10-22 14:00 | RAD_ITS ---
INDICATION: ULCER EXAMINATION/TECHNIQUE: X-RAY - RIGHT XR Foot Min 3 Views 3 VIEWS COMPARISON: None. FINDINGS: SOFT TISSUES: Mild soft tissue swelling of the distal calf and dorsum of the foot. No radiopaque foreign body. BONES/JOINTS: No acute fracture or subluxation.. Normal alignment. Preservation of the joint space.. No sclerotic or destructive changes observed. Mild plantar calcaneal spur. RAD/Foot min 3 Views IMPRESSION: Mild plantar calcaneal spur Mild nonspecific soft tissue swelling. Otherwise unremarkable x-ray of the foot with no acute fracture or subluxation. Electronically Signed: Amy Ewing MD at 16:59 EDT ,
--- NOTE | 2022-10-22 15:23 | PCM.WC.PN ---
History of Present Illness Date of Service: 10/22/22 Chief Complaint: Full-thickness ulceration, plantar foot, right foot History of Wound: Chronic wound for the last 6 months Progress of Wound: Right lower extremity subsecond tarsal plantar wound is stable. Erythema is improving. No drainage or malodor is present. No probe to bone. Subjective Subjective Mrs Alcantar is a 42-year-old diabetic female who is uncontrolled presenting for follow-up for full-thickness ulceration to the right plantar foot. Patient brought in her x-rays and PVRs for review. Patient states that she notices the redness on her right foot around the second toe is improving. She has some swelling. Denies any pain. Denies trauma. Denies constitutional symptoms. No other pedal complaints at this time. Objective Data Objective Data Vital Signs: Vital Signs Temp Pulse Resp BP O2 Del Method 96.8 F L 66 16 182/56 H Room Air 10/22/22 13:09 10/22/22 13:09 10/22/22 13:09 10/22/22 13:09 10/22/22 13:09 Oxygen Delivery Method Room Air Weight: 113.398 kg Body Mass Index (BMI) 44.2 Lab / Micro Data Attestation: I reviewed the patient's lab results. Labs: Laboratory Results - last 24 hr 10/22/22 14:03: Hemoglobin A1c 10.0 H, Vitamin D 25-Hydroxy 26.0, Urine Cotinine Screen Cancelled Physical Exam Narrative Neurovascular status is unchanged. Erythema is improving to the level of the second digit of the right foot. Full-thickness ulceration is present plantarly to the subsecond metatarsal head, no drainage, no probe to bone. Wound measures 1.2 x 0.8 x 0.6 cm. Ankle joint range of motion is decreased in dorsiflexion knee extended and increasing dorsiflexion with knee flexed. No pain with calf compression. Excisional debridement of the full-thickness ulceration, right foot subsecond metatarsal was down to and including subcutaneous tissue with a #15 blade without incident. Predebridement measurements are 1.2 x 0.8 x 0.6 cm, postdebridement measurements are 1.4 x 1.0 x 0.8 cm. Sanguinous drainage noted. No probe to bone or malodor present. Debridement Note Debridement Note Debridement Free Text: Excisional debridement of the full-thickness ulceration, right foot subsecond metatarsal was down to and including subcutaneous tissue with a #15 blade without incident. Predebridement measurements are 1.2 x 0.8 x 0.6 cm, postdebridement measurements are 1.4 x 1.0 x 0.8 cm. Sanguinous drainage noted. No probe to bone or malodor present Post-Debridement Measurements and Additional Note: Post-Debridement Measurements/Treatment WC - Nurse 1 - General Ulcer Assessment Start: 10/15/22 13:07 Freq: Status: Active Protocol: EUGENE Activity Type Activity Date Activity User E-sign Co-sign Detail Recorded Client Recorded Date Recorded By Document 10/15/22 13:07 [facility] [id number] 10/15/22 13:15 [facility] Document 10/22/22 13:09 [facility] [id number] 10/22/22 13:14 [facility] 10/15/22 10/22/22 13:07 13:09 - Today's Visit Information Type of service Initial Visit Follow-up Visit (Physician/SUPER[employer]OR [employer] ) Arrival Mode Ambulatory Ambulatory Transfer Assistance None None Patient Identification Verified (Name & Yes Yes ) Patient Requires Transmission-Based No No Precautions Height and Weight Height 5 ft 3 in Weight 113.398 kg Weight in Pounds 250.0 lbs Body Mass Index (BMI) 44.2 44.2 BMI Classification Obese Obese BSA - Rosamaria 2.13 Vital Signs Temperature (97.8 F-99.1 F) 96.8 F L Temperature Source Temporal Temporal Pulse Rate (60-100) 68 66 Pulse Location Monitor Monitor Respiratory Rate (12-18) 16 16 Respiratory rate source Observation Observation Oxygen Delivery Method Room Air Room Air Blood Pressure (90/60-120/80) 160/67 H 182/56 H Blood Pressure Mean (mm Hg) 98 98 Source Monitor Monitor Position Sitting Sitting Blood Pressure Location Right Arm Right Arm History Since Last Visit- (Skip if this is Patient's initial visit) Have you changed medications since your No last visit? Any new allergies or adverse reactions No Had a fall/change in ADL's that may No increase risk of falls Signs or symptoms of abuse and/or No neglect since last visit Have you been in the hospital since your No last visit? Has dressing in place as prescribed No Has compression in place as prescribed N/A Has offloadiing in place as prescribed N/A Experienced any changes in pain level or No management Left Footwear Regular Shoe Regular Shoe Right Footwear Slipper Slipper Pain Scale: 0-10 Numeric Is Patient Pain Free? Yes Yes Lower Extremity Assessment/ Foot Assessment/ Toe Nail Assessment Right -Lower Extremity Comment (If N/A Above PT HAD ARTERIAL ) STUDIES W/IN THE LAST COUPLE MONTHS DURING HOSPITAL STAY Left -Lower Extremity Comment (If N/A Above PT HAD ARTERIAL ) STUDIES WITHIN LAST COUPLE MONTHS Neuropathy Assessment Feet - Top Side and Bottom <Entered> (a) Communication Assessment Preferred language Luxem[place]ish Catheter Finisher And Inspector Required No Able to Read Yes Able to Write Yes Communication Tools None Right Hearing Abillity Normal Left Hearing Abillity Normal Visual Assistive Devices Glasses Teaching Assessment Preferences Verbal,Written, Audio/Visual, Demonstration Barriers to Learning None Readiness To Learn Excellent Willingness to Engage in Self Management High Activies Readiness to Engage in Self Management High Activities Anxiety Level Calm Cooperation Cooperative Perception Coherent Interest in Health Problem Asks Questions Education Importance Acknowledges Need Does Patient Smoke tobacco or other No substances Smoking Status Former smoker Is Patient Diabetic Yes Functional Assessment Recent Decline in Ability to Perform Denies Any Declines Culture/Hindu/Curriculum Coach Cultural/Hindu Needs that may affect No Treatment Plan (a) 1 - - 2 - + 3 - + 4 - + - Nurse 1 - General Ulcer Measurement Start: 10/15/22 13:07 Freq: Status: Active Protocol: Activity Type Activity Date Activity User E-sign Co-sign Detail Recorded Client Recorded Date Recorded By Document 10/15/22 13:07 [facility] [id number] 10/15/22 13:15 [facility] Document 10/22/22 13:09 [facility] [id number] 10/22/22 13:14 [facility] 10/15/22 10/22/22 13:07 13:09 Wound Center Nurse 1 #1- R PLANTAR FOOT -Combined with other wound No No -Current Size (cm) - Length 1.3 1.2 -Current Size (cm) - Width 1 0.8 -Current Size (cm) - Depth 0.9 0.6 -Total Square Cm 1.3 0.96 -Date of Last Picture (Recall this 10/15/22 10/22/22 field) -Photo Taken Yes Yes -Epithelialization None Present None Present -Tunneling No No -Undermining/Tunneling No No -Circular Undermining No No -Exudate Amt Medium Medium -Exudate Type Serosanguineous Serosanguineous -Wound Margin Distinct, Thickened Outline Attached -Granulation Amt Large (67-100%) Large (67-100%) -Granulation Quality Red [place] -Slough/Fibrin Yes No -Necrosis Amt Small (1-33%) None Present (0 %) -Necrotic Tissue Type Adherent Slough -Texture (Li-wound Skin Appearance) Assessed,Callus Assessed,Callus ,Scarring ,Scarring -Moisture (Li-wound Skin Appearance) Assessed,Dry/ Assessed,Dry/ Scaly Scaly -Color (Li-wound Skin Appearance) Assessed Assessed -Temperature (Li-wound Skin No Abnormality No Abnormality Appearance) (Pt Warm) (Pt Warm) -Tenderness on Palpation (Li-wound No No Skin Appearance) -Ulcer Cleansing Soap and Water Rinsed/ Irrigated with Saline -Foul Odor after Cleansing No No -Anesthetic Used 5% Lidocaine 5% Lidocaine Gel Gel Right Calf (cm) 41.5 Right Ankle (cm) 24.2 Left Calf (cm) 41 Left Ankle (cm) 22 - Nurse 2 - General Ulcer CM Notes Start: 10/15/22 13:07 Freq: Status: Active Protocol: Activity Type Activity Date Activity User E-sign Co-sign Detail Recorded Client Recorded Date Recorded By Document 10/15/22 13:28 [id number] 10/15/22 13:33 Document 10/22/22 13:22 [id number] 10/22/22 13:27 10/15/22 10/22/22 13:28 13:22 Wound Center Nurse 2 #1- R PLANTAR FOOT -Time 13:29 13:22 -Correct Patient Yes Yes -Correct Side, Site, Position Yes Yes -Correct Procedure Yes Yes -Procedure Performed Yes Yes -Type of Procedure Debridement Debridement -Clinical Debridement Subcutaneous Subcutaneous -Tissue Removed Subcutaneous Subcutaneous -Post Debridement (cm) - Length 1.4 1.4 -Post Debridement (cm) - Width 1.5 1.0 -Post Debridement (cm) - Depth 0.1 0.8 -Total Square (Post) (cm) 2.10 1.40 -Area of Debridement (cm) - Length 1.4 1.4 -Area of Debridement (cm) - Width 1.5 1.0 -Total Square (Area) (cm) 2.10 1.40 -Tunneling No No -Undermining/Tunneling No No -Circular Undermining No No -Wound/Ulcer Outcome Not Healed Not Healed -Ulcer Cleansing Rinsed/ Rinsed/ Irrigated with Irrigated with Saline Saline -Foul Odor after Cleansing No No -Bioengineered Tissue No No -Bleeding Controlled with Pressure Pressure -Treatment Response Procedure Procedure Tolerated Well Tolerated Well -Offloading Yes Yes -Type of Offloading Surgical Shoe Surgical Shoe -Debridement - Subq, 1st 20sq cm Yes Yes Pain Scale: 0-10 Numeric Is Patient Pain Free? Yes Yes - Nurse 3 - General Ulcer D/C NN Start: 10/15/22 13:07 Freq: Status: Active Protocol: Activity Type Activity Date Activity User E-sign Co-sign Detail Recorded Client Recorded Date Recorded By Document 10/15/22 13:47 [facility] [id number] 10/15/22 13:49 [facility] Document 10/22/22 13:34 DL [id number] 10/22/22 13:40 DL 10/15/22 10/22/22 13:47 13:34 Wound Care Center Nurse 3 #1- R PLANTAR FOOT -Ulcer Cleansing Rinsed/ Soap and Water Irrigated with Saline -Foul Odor after Cleansing No No -Primary Dressing Applied Promogran Promogran Briana Matter Briana Matter -Other Dressing BETADINE PAINT; Betadine -Primary Dressing Covered/Secured with Dry Gauze, Dry Gauze & Secured with Roll Gauze, Tape Secured with Tape -Other Covering STASIS PAD -Promogran Briana Matter 1 1 Treatment Response Procedure Procedure Tolerated Well Tolerated Well Pain Scale: 0-10 Numeric Is Patient Pain Free? Yes Yes WC - Visit Discharge Discharge Condition Stable Stable Ambulatory Status Ambulatory Ambulatory Transportation Private Auto Private Auto Assessment/Plan Assessment/Plan (1) Type 2 diabetes mellitus with diabetic polyneuropathy, with long-term current use of insulin: CODE(S): E11.42 - Type 2 diabetes mellitus with diabetic polyneuropathy; Z79.4 - retirement (current) use of insulin PLAN: Long discussion with the patient regarding her uncontrolled diabetes and high A1c. Educated the patient that increase in blood sugar over 200 mg/dL results and decreased in neutrophils to the body for approximately 24 hours. Also educated the patient that with a high A1c and blood sugar she runs the risk of not healing her wounds and having detrimental effects to her vision, kidneys and lower extremities. 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 (2) Chronic wound: CODE(S): T14.8XXA - Other injury of unspecified body region, initial encounter PLAN: Patient is still presenting with a full-thickness ulceration to the right foot subsecond metatarsal head. She has been doing dressing changes at home. She is on her antibiotic and has 1 more week left. She states improvement as well as the physical exam shows improvement to the erythema to the right foot. Reviewed the patient's radiographic films which show no evidence or concern for osteomyelitis or fractures. Pulse volume recordings show no evidence of occlusion and are normal with no evidence of arterial occlusion disease. Excisional debridement of the full-thickness ulceration, right foot subsecond metatarsal was down to and including subcutaneous tissue with a #15 blade without incident. Predebridement measurements are 1.2 x 0.8 x 0.6 cm, postdebridement measurements are 1.4 x 1.0 x 0.8 cm. Sanguinous drainage noted. No probe to bone or malodor present. Labs were ordered for the patient to get a new A1c, vitamin D and nicotine levels prior to surgery. We will begin planning surgery consisting of dorsiflexor osteotomy of the second metatarsal and endoscopic gastroc recession. All risk and benefits were discussed with the patient. 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
[2022-10-29 16:09] LABS: Cotinine Screen Blood <1.0 ng/mL (.); Nicotine Blood <1.0 ng/mL (.)
== END 2022-10-23 23:59 | disposition home or self-care (01) ==
LOC: WC 13:00
PROVIDERS: PCP Student in an Organized Health Care Education/Training Program; Referring Provider Emergency Medicine; Visit Provider Podiatrist Foot & Ankle Surgery
DX: E11.621 Type 2 diabetes mellitus with foot ulcer (principal); L97.518 Non-pressure chronic ulcer of other part of right foot with other specified severity; E11.42 Type 2 diabetes mellitus with diabetic polyneuropathy; Z79.4 Long term (current) use of insulin; Z87.891 Personal history of nicotine dependence; E78.00 Pure hypercholesterolemia, unspecified; K21.9 Gastro-esophageal reflux disease without esophagitis; Z79.899 Other long term (current) drug therapy; Z79.84 Long term (current) use of oral hypoglycemic drugs; M67.01 Short Achilles tendon (acquired), right ankle; F41.9 Anxiety disorder, unspecified; F32.A Depression, unspecified
CPT/HCPCS: 11042; 36415; 73630; 80323; 82306; 83036; 99213; G0463; G0480

== ENCOUNTER 2022-11-05 13:30 | Outpatient (RCR) | payer MEDICAID, SELFPAY ==
[2022-10-24 00:43] VITALS: BP 182/56; PULSE 66; RESP 16; TEMP 36; BMI 44.2
--- NOTE | 2022-10-28 13:18 | WC ---
PATIENT CALLED IN ASKING WHAT HER hGBA1C RESULT IS. nOTIFIED DR MONTANEZ WHO STATES IT'S A 10.0 AND THAT SHE NEEDS TO GET IT DOWN. CALLED PATIENT LETTING HER KNOW THE RESULT AND IS SCHEDULED TO SEE HIM TOMORROW AT [facility]. WILL DISCUSS SURGICAL OPTIONS THEN.
[2022-10-29 13:36] VITALS: BP 172/75; PULSE 64; RESP 16; TEMP 35.8; BMI 44.2
--- NOTE | 2022-10-29 15:43 | PCM.WC.PN ---
History of Present Illness Date of Service: 10/29/22 Chief Complaint: Full-thickness ulceration, plantar foot, right foot. Full-thickness ulceration, left ankle History of Wound: Chronic wound for the last 6 months New wound to the left ankle Subjective Subjective Mrs. Alcantar is a 42-year-old diabetic female presenting to clinic today for follow-up and evaluation of a full-thickness ulceration to the plantar aspect of her right foot. Patient was to have a new full-thickness wound to her left ankle and is unsure how it got there. She did get her blood work and states that her A1c is 10.0. She states that she is doing great improvements in breathing, and blood sugar like to move forward with surgery. She does understand all risk and benefits and knows that her elevated blood sugar can cause wound healing complications. But she is tired of having the wound to the bottom of her right foot and is willing to do it anything at this time to help get it healed. She denies trauma. Denies constitutional symptoms. No other pedal complaints at this time. Objective Data Objective Data Vital Signs: Vital Signs Temp Pulse Resp BP O2 Del Method 96.4 F L 64 16 172/75 H Room Air 10/29/22 13:36 10/29/22 13:36 10/29/22 13:36 10/29/22 13:36 10/29/22 13:36 Oxygen Delivery Method Room Air Weight: 113.398 kg Body Mass Index (BMI) 44.2 Lab / Micro Data Attestation: I reviewed the patient's lab results. Physical Exam Narrative Neurovascular status unchanged. Full-thickness ulceration appreciated to the subsecond metatarsal of the right lower extremity. Evidence of full-thickness ulceration appreciated to the lateral aspect of the left ankle. Both wounds are stable with no sign of infection erythema or proximal streaking. Both wounds show 100% granular base. No drainage, probe to bone noted. Pain on palpation to both full-thickness ulcerations. No pain with calf compression. Debridement Note Debridement Note Debridement Free Text: Right: Excisional debridement down to and including subcutaneous tissue with number 5 mm dermal curette without incident to the right plantar subsecond metatarsal head. Predebridement measurements were 1.1 x 0.8 x 0.5 cm. Postdebridement measurements are 1.4 x 0.9 x 0.9 cm. Left: Excisional debridement down to and including subcutaneous tissue with number 5 mm curette without incident to the left lateral ankle. Predebridement measurements are 0.5 x 0.6 x 0.1 cm. Postdebridement measurements are 0.6 x 0.8 x 0.2 cm. 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 MANAGER ) Arrival Mode Ambulatory Transfer Assistance None Accompanied by KIDS Patient Identification Verified (Name & Yes ) Patient Requires Transmission-Based No Precautions Height and Weight Body Mass Index (BMI) 44.2 BMI Classification Obese Vital Signs Temperature (97.8 F-99.1 F) 96.4 F L Temperature Source Temporal Pulse Rate (60-100) 64 Pulse Location Monitor Respiratory Rate (12-18) 16 Respiratory rate source Observation Oxygen Delivery Method Room Air Blood Pressure (90/60-120/80) 172/75 H Blood Pressure Mean (mm Hg) 107 Source Monitor Position Sitting Blood Pressure Location Left Arm History Since Last Visit- (Skip if this is Patient's initial visit) Have you changed medications since your No last visit? Any new allergies or adverse reactions No Had a fall/change in ADL's that may No increase risk of falls Signs or symptoms of abuse and/or No neglect since last visit Have you been in the hospital since your No last visit? Has dressing in place as prescribed Yes Has compression in place as prescribed N/A Has offloadiing in place as prescribed Yes Experienced any changes in pain level or No management Left Footwear Regular Shoe Right Footwear Surgical Shoe with pressure relief insole Pain Scale: 0-10 Numeric Is Patient Pain Free? Yes - Nurse 1 - General Ulcer Measurement Start: 10/29/22 13:36 Freq: Status: Active Protocol: Activity Type Activity Date Activity User E-sign Co-sign Detail Recorded Client Recorded Date Recorded By Document 10/29/22 13:36 [facility] [id number] 10/29/22 13:45 [facility] 10/29/22 13:36 Wound Center Nurse 1 #2- L LAT ANKLE -Combined with other wound No -Current Size (cm) - Length 0.5 -Current Size (cm) - Width 0.6 -Current Size (cm) - Depth 0.1 -Total Square Cm 0.30 -Date of Last Picture (Recall this 10/29/22 field) -Photo Taken Yes -Epithelialization None Present -Tunneling No -Undermining/Tunneling No -Circular Undermining No -Exudate Amt None Present -Wound Margin Distinct, Outline Attached -Granulation Amt None Present (0 %) -Slough/Fibrin Yes -Necrosis Amt Large (67-100%) -Necrotic Tissue Type Eschar -Texture (Li-wound Skin Appearance) Assessed -Moisture (Li-wound Skin Appearance) Assessed -Color (Li-wound Skin Appearance) Assessed, Erythema -Temperature (Li-wound Skin No Abnormality Appearance) (Pt Warm) -Tenderness on Palpation (Li-wound No Skin Appearance) -Ulcer Cleansing Rinsed/ Irrigated with Saline -Foul Odor after Cleansing No -Anesthetic Used 5% Lidocaine Gel #1- R PLANTAR FOOT -Combined with other wound No -Current Size (cm) - Length 1.1 -Current Size (cm) - Width 0.8 -Current Size (cm) - Depth 0.5 -Total Square Cm 0.88 -Date of Last Picture (Recall this 10/29/22 field) -Photo Taken No -Epithelialization None Present -Tunneling No -Undermining/Tunneling No -Circular Undermining No -Exudate Amt Medium -Exudate Type Serosanguineous -Wound Margin Distinct, Outline Attached -Granulation Amt Large (67-100%) -Granulation Quality Benedict -Slough/Fibrin Yes -Necrosis Amt Small (1-33%) -Necrotic Tissue Type Adherent Slough -Texture (Li-wound Skin Appearance) Assessed, Scarring -Moisture (Li-wound Skin Appearance) Assessed -Color (Li-wound Skin Appearance) Assessed -Temperature (Li-wound Skin No Abnormality Appearance) (Pt Warm) -Tenderness on Palpation (Li-wound No Skin Appearance) -Ulcer Cleansing Rinsed/ Irrigated with Saline -Anesthetic Used 5% Lidocaine Gel,Cetacaine WC - Nurse 2 - General Ulcer CM Notes Start: 10/29/22 13:36 Freq: Status: Active Protocol: Activity Type Activity Date Activity User E-sign Co-sign Detail Recorded Client Recorded Date Recorded By Document 10/29/22 13:51 [id number] 10/29/22 14:03 AIDE 10/29/22 13:51 Wound Center Nurse 2 #2- L LAT ANKLE -Time 13:52 -Correct Patient Yes -Correct Side, Site, Position Yes -Correct Procedure Yes -Procedure Performed Yes -Type of Procedure Debridement -Clinical Debridement Subcutaneous -Tissue Removed Subcutaneous -Post Debridement (cm) - Length 0.6 -Post Debridement (cm) - Width 0.8 -Post Debridement (cm) - Depth 0.1 -Total Square (Post) (cm) 0.48 -Area of Debridement (cm) - Length 0.6 -Area of Debridement (cm) - Width 0.8 -Total Square (Area) (cm) 0.48 -Tunneling No -Undermining/Tunneling No -Circular Undermining No -Wound/Ulcer Outcome Not Healed -Ulcer Cleansing Rinsed/ Irrigated with Saline -Foul Odor after Cleansing No -Bioengineered Tissue No -Bleeding Controlled with Pressure -Treatment Response Procedure Tolerated Well -Offloading Yes -Type of Offloading Surgical Shoe -Debridement - Subq, 1st 20sq cm Yes #1- R PLANTAR FOOT -Time 13:52 -Correct Patient Yes -Correct Side, Site, Position Yes -Correct Procedure Yes -Procedure Performed Yes -Type of Procedure Debridement -Clinical Debridement Subcutaneous -Tissue Removed Subcutaneous -Post Debridement (cm) - Length 1.4 -Post Debridement (cm) - Width 0.9 -Post Debridement (cm) - Depth 0.9 -Total Square (Post) (cm) 1.26 -Area of Debridement (cm) - Length 1.4 -Area of Debridement (cm) - Width 0.9 -Total Square (Area) (cm) 1.26 -Tunneling No -Undermining/Tunneling No -Circular Undermining No -Wound/Ulcer Outcome Not Healed -Ulcer Cleansing Rinsed/ Irrigated with Saline -Foul Odor after Cleansing No -Bioengineered Tissue No -Bleeding Controlled with Pressure -Treatment Response Procedure Tolerated Well -Offloading Yes -Type of Offloading Knee Walker -Debridement - Subq, 1st 20sq cm No Pain Scale: 0-10 Numeric Is Patient Pain Free? Yes WC - Nurse 3 - General Ulcer D/C NN Start: 10/29/22 13:36 Freq: Status: Active Protocol: Activity Type Activity Date Activity User E-sign Co-sign Detail Recorded Client Recorded Date Recorded By Document 10/29/22 14:26 DL [id number] 10/29/22 14:28 DL 10/29/22 14:26 Wound Care Center Nurse 3 #2- L LAT ANKLE -Ulcer Cleansing Rinsed/ Irrigated with Saline -Foul Odor after Cleansing No -Primary Dressing Applied Promogran Sam Matter -Other Dressing betadine -Primary Dressing Covered/Secured with Dry Gauze, Secured with Tape -Promogran Sam Matter 1 #1- R PLANTAR FOOT -Ulcer Cleansing Rinsed/ Irrigated with Saline -Foul Odor after Cleansing No -Other Dressing betadine/ sam -Primary Dressing Covered/Secured with Dry Gauze, Secured with Tape Other/Comment betadine Treatment Response Procedure Tolerated Well Pain Scale: 0-10 Numeric Is Patient Pain Free? Yes WC - Visit Discharge Discharge Condition Stable Ambulatory Status Ambulatory Transportation Private Auto Assessment/Plan Assessment/Plan (1) Type 2 diabetes mellitus with diabetic polyneuropathy, with long-term current use of insulin: CODE(S): E11.42 - Type 2 diabetes mellitus with diabetic polyneuropathy; Z79.4 - hogshead liner (current) use of insulin PLAN: Patient was examined evaluated. All findings were discussed with the patient. All questions were answered to the patient satisfaction. Educated the patient to continue her strict life Clive control after her A1c is measuring 10. Patient states that she is down from the 500 to 600 mg/dL range and is making great improvements. She would still like to move forward with surgical intervention to help heal her plantar wound. She understands the risk and benefits and again would like to move forward. I will fill out a booking sheet at the office and submit it to surgical planning for booking of the patient's surgery. She is understanding of this. (2) Chronic wound: CODE(S): T14.8XXA - Other injury of unspecified body region, initial encounter PLAN: Right: Excisional debridement down to and including subcutaneous tissue with number 5 mm dermal curette without incident to the right plantar subsecond metatarsal head. Predebridement measurements were 1.1 x 0.8 x 0.5 cm. Postdebridement measurements are 1.4 x 0.9 x 0.9 cm. Left: Excisional debridement down to and including subcutaneous tissue with number 5 mm curette without incident to the left lateral ankle. Predebridement measurements are 0.5 x 0.6 x 0.1 cm. Postdebridement measurements are 0.6 x 0.8 x 0.2 cm. Both wounds were dressed with Sam, Betadine paint dry sterile dressing and Tubigrip. Encouraged the patient to be nonweightbearing to the right foot and continue to diet and exercise and get her blood sugar down before surgical intervention of the right lower extremity. 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
[2022-11-05 13:34] VITALS: BP 167/98; PULSE 78; RESP 18; TEMP 36.1; BMI 44.2
--- NOTE | 2022-11-05 17:07 | PCM.WC.PN ---
History of Present Illness Date of Service: 11/05/22 Chief Complaint: Full-thickness ulceration, plantar foot, right foot. Full-thickness ulceration, left ankle History of Wound: Chronic wound for the last 6 months New wound to the left ankle Subjective Subjective Mrs. Alcantar is a diabetic female 42 years of age. Presents today to the wound care center chief complaint of full-thickness ulceration to the plantar aspect of the subsecond metatarsal of the right foot as well as ulceration to right ankle. Patient was having some pain and also admits to walking long periods of time in her surgical shoe. She admits her blood sugars below 200 as tested. She is doing her wound care dressings as instructed. She denies trauma. Denies constitutional symptoms. She is waiting for her surgery. No other pedal complaints at this time. Objective Data Objective Data Vital Signs: Vital Signs Temp Pulse Resp BP O2 Del Method 96.9 F L 78 18 167/98 H Room Air 11/05/22 13:34 11/05/22 13:34 11/05/22 13:34 11/05/22 13:34 10/29/22 13:36 Oxygen Delivery Method Room Air Weight: 113.398 kg Body Mass Index (BMI) 44.2 Lab / Micro Data Attestation: I reviewed the patient's lab results. Physical Exam Narrative Neurovascular status unchanged. Nonpitting edema appreciated to the right lower extremity. Full-thickness ulceration subsecond metatarsal right foot measuring 1.5 x 1.1 x 0.7 cm. Full-thickness ulceration to the left ankle measuring 0.1 x 0.17 x 0.1 cm. Wound base on the right plantar is granular nature no drainage no malodor or probe to bone. Evidence of blanchable erythema is appreciated to the second digit of the right foot. No pain with calf compression. Excisional debridement down to and including subcutaneous tissue of the subsecond metatarsal ulceration right foot with a number 5 mm dermal curette. Predebridement measurements were 1.3 x 0.9 x 0.5 cm. Postdebridement measurements are 1.5 x 1.1 x 0.7 cm. Wound was dressed with Briana, Betadine paint and sterile Band-Aid. Offloading pads dispensed to the patient and she was educated to be partial weightbearing in surgical shoe until her surgery. She is to call the office to inquire about surgical scheduling. Const alert, oriented x3 and no apparent distress Debridement Note Debridement Note Debridement Free Text: Excisional debridement down to and including subcutaneous tissue of the subsecond metatarsal ulceration right foot with a number 5 mm dermal curette. Predebridement measurements were 1.3 x 0.9 x 0.5 cm. Postdebridement measurements are 1.5 x 1.1 x 0.7 cm. Wound was dressed with Briana, Betadine paint and sterile Band-Aid. Offloading pads dispensed to the patient and she was educated to be partial weightbearing in surgical shoe until her surgery. She is to call the office to inquire about surgical scheduling. Post-Debridement Measurements and Additional Note: Post-Debridement Measurements/Treatment WC - Nurse 1 - General Ulcer Assessment Start: 10/29/22 13:36 Freq: Status: Active Protocol: EUGENE Activity Type Activity Date Activity User E-sign Co-sign Detail Recorded Client Recorded Date Recorded By Document 10/29/22 13:36 [facility] [id number] 10/29/22 13:45 [facility] Document 11/05/22 13:34 [id number] 11/05/22 13:40 RB 10/29/22 11/05/22 13:36 13:34 - Today's Visit Information Type of service Follow-up Visit Follow-up Visit (Physician/CLOTH PRINTING INSPECTOR (Physician/CLOTH PRINTING INSPECTOR ) ) Arrival Mode Ambulatory Ambulatory Transfer Assistance None None Accompanied by KIDS Patient Identification Verified (Name & Yes Yes ) Patient Requires Transmission-Based No No Precautions Height and Weight Body Mass Index (BMI) 44.2 44.2 BMI Classification Obese Obese Vital Signs Temperature (97.8 F-99.1 F) 96.4 F L 96.9 F L Temperature Source Temporal Temporal Pulse Rate (60-100) 64 78 Pulse Location Monitor Monitor Respiratory Rate (12-18) 16 18 Respiratory rate source Observation Observation Oxygen Delivery Method Room Air Blood Pressure (90/60-120/80) 172/75 H 167/98 H Blood Pressure Mean (mm Hg) 107 121 Source Monitor Monitor Position Sitting Semi-Fowlers Blood Pressure Location Left Arm Left Arm History Since Last Visit- (Skip if this is Patient's initial visit) Have you changed medications since your No No last visit? Any new allergies or adverse reactions No No Had a fall/change in ADL's that may No No increase risk of falls Signs or symptoms of abuse and/or No No neglect since last visit Have you been in the hospital since your No No last visit? Has dressing in place as prescribed Yes Yes Has compression in place as prescribed N/A No Has offloadiing in place as prescribed Yes No Experienced any changes in pain level or No No management Left Footwear Regular Shoe Right Footwear Surgical Shoe with pressure relief insole Pain Scale: 0-10 Numeric Is Patient Pain Free? Yes Yes WC - Nurse 1 - General Ulcer Measurement Start: 10/29/22 13:36 Freq: Status: Active Protocol: Activity Type Activity Date Activity User E-sign Co-sign Detail Recorded Client Recorded Date Recorded By Document 10/29/22 13:36 [facility] [id number] 10/29/22 13:45 [facility] Document 11/05/22 13:34 RB [id number] 11/05/22 13:40 RB 10/29/22 11/05/22 13:36 13:34 Wound Center Nurse 1 #2- L LAT ANKLE -Combined with other wound No No -Current Size (cm) - Length 0.5 0.1 -Current Size (cm) - Width 0.6 0.1 -Current Size (cm) - Depth 0.1 0.1 -Total Square Cm 0.30 0.01 -Date of Last Picture (Recall this 10/29/22 field) -Photo Taken Yes -Epithelialization None Present -Tunneling No No -Undermining/Tunneling No No -Circular Undermining No No -Exudate Amt None Present Small -Exudate Type Serosanguineous -Wound Margin Distinct, Distinct, Outline Outline Attached Attached -Granulation Amt None Present (0 Medium (34-66%) %) -Granulation Quality Brooks -Slough/Fibrin Yes Yes -Necrosis Amt Large (67-100%) Medium (34-66%) -Necrotic Tissue Type Eschar Adherent Slough -Structure Exposed N/A -Texture (Li-wound Skin Appearance) Assessed Assessed -Moisture (Li-wound Skin Appearance) Assessed Assessed -Color (Li-wound Skin Appearance) Assessed, Assessed Erythema -Temperature (Li-wound Skin No Abnormality No Abnormality Appearance) (Pt Warm) (Pt Warm) -Tenderness on Palpation (Li-wound No No Skin Appearance) -Ulcer Cleansing Rinsed/ Wound Cleanser Irrigated with Saline -Foul Odor after Cleansing No No -Anesthetic Used 5% Lidocaine 5% Lidocaine Gel Gel #1- R PLANTAR FOOT -Combined with other wound No No -Current Size (cm) - Length 1.1 1.5 -Current Size (cm) - Width 0.8 0.9 -Current Size (cm) - Depth 0.5 0.7 -Total Square Cm 0.88 1.35 -Date of Last Picture (Recall this 10/29/22 field) -Photo Taken No -Epithelialization None Present -Tunneling No No -Undermining/Tunneling No No -Circular Undermining No No -Exudate Amt Medium Large -Exudate Type Serosanguineous Serosanguineous -Wound Margin Distinct, Thickened Outline Attached -Granulation Amt Large (67-100%) Medium (34-66%) -Granulation Quality Brooks Brooks -Slough/Fibrin Yes Yes -Necrosis Amt Small (1-33%) Medium (34-66%) -Necrotic Tissue Type Adherent Slough Adherent Slough -Structure Exposed N/A -Texture (Li-wound Skin Appearance) Assessed, Assessed,Callus Scarring -Moisture (Li-wound Skin Appearance) Assessed Assessed -Color (Li-wound Skin Appearance) Assessed Assessed -Temperature (Li-wound Skin No Abnormality No Abnormality Appearance) (Pt Warm) (Pt Warm) -Tenderness on Palpation (Li-wound No No Skin Appearance) -Ulcer Cleansing Rinsed/ Wound Cleanser Irrigated with Saline -Foul Odor after Cleansing No -Anesthetic Used 5% Lidocaine 5% Lidocaine Gel,Cetacaine Gel WC - Nurse 2 - General Ulcer CM Notes Start: 10/29/22 13:36 Freq: Status: Active Protocol: Activity Type Activity Date Activity User E-sign Co-sign Detail Recorded Client Recorded Date Recorded By Document 10/29/22 13:51 [id number] 10/29/22 14:03 Document 11/05/22 14:41 [id number] 11/05/22 14:44 10/29/22 11/05/22 13:51 14:41 Wound Center Nurse 2 #2- L LAT ANKLE -Time 13:52 -Correct Patient Yes No -Correct Side, Site, Position Yes No -Correct Procedure Yes No -Procedure Performed Yes No -Type of Procedure Debridement -Clinical Debridement Subcutaneous -Tissue Removed Subcutaneous -Post Debridement (cm) - Length 0.6 0.1 -Post Debridement (cm) - Width 0.8 0.1 -Post Debridement (cm) - Depth 0.1 0.1 -Total Square (Post) (cm) 0.48 0.01 -Area of Debridement (cm) - Length 0.6 0.1 -Area of Debridement (cm) - Width 0.8 0.1 -Total Square (Area) (cm) 0.48 0.01 -Tunneling No -Undermining/Tunneling No -Circular Undermining No -Wound/Ulcer Outcome Not Healed Not Healed -Ulcer Cleansing Rinsed/ Irrigated with Saline -Foul Odor after Cleansing No -Bioengineered Tissue No -Bleeding Controlled with Pressure -Treatment Response Procedure Tolerated Well -Offloading Yes -Type of Offloading Surgical Shoe -Debridement - Subq, 1st 20sq cm Yes #1- R PLANTAR FOOT -Time 13:52 14:41 -Correct Patient Yes Yes -Correct Side, Site, Position Yes Yes -Correct Procedure Yes Yes -Procedure Performed Yes Yes -Type of Procedure Debridement Debridement -Clinical Debridement Subcutaneous Subcutaneous -Tissue Removed Subcutaneous Subcutaneous -Post Debridement (cm) - Length 1.4 1.5 -Post Debridement (cm) - Width 0.9 1.1 -Post Debridement (cm) - Depth 0.9 0.7 -Total Square (Post) (cm) 1.26 1.65 -Area of Debridement (cm) - Length 1.4 1.5 -Area of Debridement (cm) - Width 0.9 1.1 -Total Square (Area) (cm) 1.26 1.65 -Tunneling No No -Undermining/Tunneling No No -Circular Undermining No No -Wound/Ulcer Outcome Not Healed Not Healed -Ulcer Cleansing Rinsed/ Rinsed/ Irrigated with Irrigated with Saline Saline -Foul Odor after Cleansing No No -Bioengineered Tissue No No -Bleeding Controlled with Pressure Pressure -Treatment Response Procedure Procedure Tolerated Well Tolerated Well -Offloading Yes Yes -Type of Offloading Knee Walker Surgical Shoe -Debridement - Subq, 1st 20sq cm No Yes Pain Scale: 0-10 Numeric Is Patient Pain Free? Yes Yes - Nurse 3 - General Ulcer D/C NN Start: 10/29/22 13:36 Freq: Status: Active Protocol: Activity Type Activity Date Activity User E-sign Co-sign Detail Recorded Client Recorded Date Recorded By Document 10/29/22 14:26 DL [id number] 10/29/22 14:28 DL Document 11/05/22 14:58 RB [id number] 11/05/22 14:59 RB 10/29/22 11/05/22 14:26 14:58 Wound Care Center Nurse 3 #2- L LAT ANKLE -Ulcer Cleansing Rinsed/ Irrigated with Saline -Foul Odor after Cleansing No -Primary Dressing Applied Promogran Briana Matter -Other Dressing betadine -Primary Dressing Covered/Secured with Dry Gauze, Dry Gauze Secured with Tape -Promogran Briana Matter 1 #1- R PLANTAR FOOT -Ulcer Cleansing Rinsed/ Rinsed/ Irrigated with Irrigated with Saline Saline -Foul Odor after Cleansing No -Primary Dressing Applied Promogran Briana Matter -Other Dressing betadine/ apperature pad briana R surgical shoe -Primary Dressing Covered/Secured with Dry Gauze, Dry Gauze,Dry Secured with Gauze & Roll Tape Gauze,Secured with Tape -Other Covering betadine to periulcer -Promogran Briana Matter 1 Other/Comment betadine Treatment Response Procedure Procedure Tolerated Well Tolerated Well Pain Scale: 0-10 Numeric Is Patient Pain Free? Yes Yes WC - Visit Discharge Discharge Condition Stable Stable Ambulatory Status Ambulatory Ambulatory Transportation Private Auto Private Auto Medication Reconcilliation completed & No provided to patient/care provider Clinical Summary of Care Provided Yes Assessment/Plan Assessment/Plan (1) Type 2 diabetes mellitus with foot ulcer: CODE(S): E11.621 - Type 2 diabetes mellitus with foot ulcer; L97.509 - Non-pressure chronic ulcer of other part of unspecified foot with unspecified severity PLAN: Patient was examined evaluated. All findings were discussed with patient. All questions were answered to the patient satisfaction. Excisional debridement down to and including subcutaneous tissue of the subsecond metatarsal ulceration right foot with a number 5 mm dermal curette. Predebridement measurements were 1.3 x 0.9 x 0.5 cm. Postdebridement measurements are 1.5 x 1.1 x 0.7 cm. Wound was dressed with Briana, Betadine paint and sterile Band-Aid. Offloading pads dispensed to the patient and she was educated to be partial weightbearing in surgical shoe until her surgery. She is to call the office to inquire about surgical scheduling. Follow-up 1 week of surgery is not scheduled. (2) Cellulitis of right foot: CODE(S): L03.115 - Cellulitis of right lower limb PLAN: Patient will be placed on doxycycline for 14 days prior to surgery to help control any soft tissue infection and also to prevent any further infection as well as bone infection prior to surgery or thereafter. Patient is understanding. 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
== END 2022-11-22 23:59 | disposition home or self-care (01) ==
LOC: WC 13:30
PROVIDERS: PCP Student in an Organized Health Care Education/Training Program; Referring Provider Emergency Medicine; Visit Provider Podiatrist Foot & Ankle Surgery
DX: E11.621 Type 2 diabetes mellitus with foot ulcer (principal); L97.518 Non-pressure chronic ulcer of other part of right foot with other specified severity; E11.42 Type 2 diabetes mellitus with diabetic polyneuropathy; Z79.4 Long term (current) use of insulin; E78.00 Pure hypercholesterolemia, unspecified; Z87.891 Personal history of nicotine dependence; K21.9 Gastro-esophageal reflux disease without esophagitis; Z79.899 Other long term (current) drug therapy; Z79.84 Long term (current) use of oral hypoglycemic drugs; M67.01 Short Achilles tendon (acquired), right ankle; F41.9 Anxiety disorder, unspecified; F32.A Depression, unspecified
CPT/HCPCS: 11042

== ENCOUNTER 2022-11-17 07:00 | Day surgery (SDC) | payer MEDICAID, SELFPAY ==
[2022-11-17] VITALS (9 sets, daily range): BP systolic 93–159; BP diastolic 49–79; PULSE 52–65; RESP 16–20; TEMP 36.6–36.9; O2SAT 92–97; BMI 45.1
--- NOTE | 2022-11-17 | MASS_PTH ---
PATIENT: COLLINS ENG [place] [facility] [id number] AGE/SX: 42/F ROOM: RE11/17/[address]: Dr. Montana French DPM : 1980 BED: DIS: 11/17/2022 SPEC #: [id number] RECD: 11/17/22 10:08 STATUS: LEONORA MARIA G #: [id number] AGUEDA: 11/17/22 00:[address]: Montana French DEPT: SURGICAL PATHOLOGY RECD BY: Romero Danielle ENTERED: 11/17/22 10:44 SP TYPE: Mass OTHR DR: JENNIFER FRANKEL DO Tissues: Foot, NOS Procedures: Surgery Specimen Level IV HEADER OPERATION: ERAS, right foot dorsiflexion osteotomy of second metatarsal PRE-OP DIAGNOSIS: Chronic right foot wound TISSUE SUBMITTED: Benign neoplasm right foot MICROSCOPIC DIAGNOSIS Soft tissue of right foot, biopsy: Ulceration with associated acute and chronic inflammation, granulation and fibrosis. AM:lisa 11/18/2022 MICROSCOPIC DESCRIPTION Slides are reviewed. GROSS DESCRIPTION Received in fixative is one container labeled with the patient's name and designated benign neoplasm right foot. The specimen consists of multiple punch biopsy of morrissey-white skin that in aggregate measure 1.0 x 0.7 x 0.2 cm. The specimen is totally submitted in one cassette. / LUDMILA:lisa 11/17/2022 TC:2 CPT: 50309
[2022-11-17] MEDS: Lactated Ringers 1,000 ML 15 ML IV (07:51)
[2022-11-17 07:56] LABS: Bedside Glucose 188 mg/dL (74-106)
[2022-11-17] MEDS: Acetaminophen 500 MG Tablet 1000 MG PO (08:02)
[2022-11-17] MEDS: Gabapentin 600 MG Tablet PO (08:03)
[2022-11-17 08:05] LABS: Anion Gap 7 (5-15); BUN 8 mg/dL (7-18); BUN/Creat Ratio 11.7 RATIO (10-20); Calcium,Total 8.7 mg/dL (8.5-10.1); Chloride 105 mmol/L (98-107); Creatinine, Serum 0.69 mg/dL (0.55-1.02); EST Glomerular Filtration Rate 99 mL/min (>60); Est Glom Filt Rate - Afr Amer 119 mL/min (>60); Estimated Creatinine Clearance 86.07 ml/min; Glucose 192 mg/dL (74-106); Magnesium 1.6 mg/dL (1.6-2.6); Potassium 3.5 mmol/L (3.5-5.1); Sodium Level 139 mmol/L (136-145)
[2022-11-17 08:12] LABS: Hemoglobin A1c 7.7 % (3.8-5.6)
--- NOTE | 2022-11-17 08:15 | RAD_ITS ---
STUDY: X-RAY - LEFT FOOT CLINICAL: Female, 42 years old. ERAS FOOT DORSIFLEXION OSTEOTOMY TECHNIQUE: 3 view(s) of the foot. COMPARISON: None. FINDINGS: Intraoperative imaging provided for operative procedure. RAD/Foot min 3 Views IMPRESSION: Intraoperative imaging provided for operative procedure. Electronically Signed: Jamey Winter MD at 14:39 EDT ,
--- NOTE | 2022-11-17 08:15 | RAD_ITS ---
STUDY: X-RAY - RIGHT FOOT CLINICAL: Female, 42 years old. ERAS FOOT DORSIFLEXION TECHNIQUE: 3 view(s) of the foot. COMPARISON: None. FINDINGS: Intraoperative fluoroscopic service provided. RAD/Foot min 3 Views IMPRESSION: Intraoperative imaging provided for operative procedure. Electronically Signed: Jamey Winter MD at 14:38 EDT ,
[2022-11-17] MEDS: Cefazolin 2 GM in 0.9% Normal Saline (100mL Bag) 100 ML IV (08:24)
[2022-11-17] MEDS: Magnesium 2 GM for ERAS IV (08:35)
[2022-11-17] MEDS: Bupivacaine Mpf 0.5% 30 ML VIAL (09:26)
--- NOTE | 2022-11-17 09:50 | OP.PCM_ITS ---
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 Tight Achilles cord, right lower extremity 2. Diabetes type 2 with peripheral neuropathy and ulceration subsecond metatarsal, right foot 3. Full-thickness ulceration, subsecond metatarsal, right foot 4. Benign neoplasm, right foot Post-Operative Diagnosis: 1. Tight Achilles cord, right lower extremity 2. Diabetes type 2 with peripheral neuropathy and ulceration subsecond metatarsal, right foot 3. Full-thickness ulceration, subsecond metatarsal, right foot 4. Benign neoplasm, right foot Surgery/Procedure Performed:: 1. Endoscopic gastroc recession, right lower extremity 2. MIS central metatarsal osteotomy, second metatarsal, right foot 3. Punch biopsy, benign neoplasm, right foot 4. Surgical skin graft preparation, full-thickness ulceration, right foot 5. Application of skin graft substitute, right foot Description of Surgical Findings:: 1. Improved dorsiflexion with knee extended after gastroc recession, right lower extremity 2. Successful punch biopsy, x2, full-thickness ulceration, right foot 3. Complete minimally invasive central metatarsal osteotomy second metatarsal, right foot 4. 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 Punch biopsy of full-thickness ulceration (x2), chronic wound for greater than 10 months, right foot Drains: None Estimated Blood Loss (mL): 5 cc Fluids Replaced: Per anesthesia Description of Procedure: Indications For Operation: This is a 42-year-old diabetic female who was admitted to [facility] for elective surgery of the right lower extremity consisting of endoscopic gastroc recession, MIS central metatarsal osteotomy of the second metatarsal, punch biopsy of full-thickness ulceration greater than 10 months, preparation of skin graft site with application of skin graft substitute all of the right lower extremity. Due to the patient's chronic full-thickness ulceration to the subsecond metatarsal as well as tight posterior muscle group of the right lower extremity with concerns of possible benign neoplasm to the ulceration, it had been deemed necessary at this time to take the patient to the operating room to perform the procedures as stated above. The nature of the problem, anticipated procedures, postop recovery/convalences and risk/complications include but not limited to infection, wound healing complications, hypertrophic scarring, numbness, tingling, chronic pain, CRPS, over and under correction, recurrence of deformity, DVT and or PE and the need for further surgery have been discussed in great detail with the patient. All questions have been answered to the patient's satisfaction. There are no guarantees given as to the outcome of the procedure. Description of Procedure: Under mild sedation, the patient was brought into the operating room and placed on the operating table in supine position. Once the patient was under general anesthesia with endotracheal tube, the right lower extremity was blocked using approximately 10 cc 0.5% Marcaine plain. Next, a timeout was then undertaken verifying the correct patient, extremity, visibility of preoperative markings, availability of the equipment. A well-padded thigh tourniquet was applied to the right thigh. The right lower extremity was prepped and draped in normal aseptic manner. A 6 inch Esmarch was used to exsanguinate the right lower extremity and the thigh tourniquet was inflated to 275 mmHg. Next, attention was directed to the right lower extremity at the level of the gastrocsoleus complex. The right ankle was stabilized in neutral position, allowing the gastrocnemius tendon to be under moderate tension. The aponeurosis was palpated and a medial incision with 15 blade was made approximately 2 cm distal from the lowest part of the gastrocnemius muscle belly. Continued blunt dissection with a hemostat was made through the deep crural fascia. The obturator was used to dissect between the the soft tissue and the gastrocnemius tendon. Once the obturator made its way through to the lateral aspect of the right lower extremity, a stab incision was made with a 15 blade and the receptionist/telephone operator was pushed through. The cannula was inserted followed by the Arthrex micro 0 degree scope for visualization of the gastrocnemius aponeurosis. Further evaluation showed the saphenous vein as well as the sural nerve to be well protected against the cannula and away from the operative site. Next, the hook knife was used to release the tendon from medial lateral followed by lateral to medial with visualization of complete release of the gastrocnemius tendon. The right lower extremity ankle was put through range of motion and showed to get greater than 15 degrees past neutral with the knee extended. 2 incisions were flushed with copious yonathan of normal saline. The skin and deep layer was reapproximated using 3-0 nylon and over over suture technique. Next, attention was directed to the second metatarsal. Using mini C arm, placement for the osteotomy was confirmed and a half centimeter incision was made over the surgical neck of the second metatarsal. 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 The second metatarsal head was stressed to show complete release and ability to float in the sagittal plane. Incision was flushed with copious normal saline, a small sample of biovance was applied into the incision, and the incision was reapproximated with 3-0 nylon in simple interrupted suture technique. Next, attention was directed to the plantar aspect of the second second metatarsal. Using a 3 mm punch biopsy, 2 samples were removed from the full- thickness chronic ulceration greater than 10 months, and passed to the back table to be sent off for pathology. Next, attention was redirected to the full-thickness ulceration subsecond metatarsal which was excisionally debrided down to and including subcutaneous tissue with a #15 blade for skin graft prep. Predebridement measurements 1.3 x 0.9 x 0.5 cm. Postdebridement measurements are 1.5 x 1.1 x 0.7 cm. Next, application of skin graft substitute, biovance, was applied to the full- thickness ulceration of the subsecond metatarsal right foot. The right thigh tourniquet was deflated after 40 minutes and excellent reperfusion was noted to the right lower extremity. The right lower extremity was wiped clean and patted dry. Adaptic was applied over the full-thickness ulceration and skin graft substitute and held in place with Steri-Strips. Saline moist gauze was applied over the Adaptic followed by 4 x 4's, jumpstart was applied to all incisions and a Valdes AO splint was applied to the right lower extremity. The patient tolerated the procedure and anesthesia well in apparent satisfactory condition and was transported to the PACU for further monitoring prior to discharge back to the floor. Vital signs stable and vascular status intact to all digits bilateral. Post Operative Plan: Weightbearing: Nonweightbearing operative extremity Antibiotics: 2 g Ancef x 1 dose given preoperatively DVT Prophylaxis: None Doan: None Dressing: Adaptic was applied over the full-thickness ulceration and skin graft substitute and held in place with Steri-Strips. Saline moist gauze was applied over the Adaptic followed by 4 x 4's, jumpstart was applied to all incisions and a Valdes AO splint was applied to the right lower extremity. X-Rays: Post-operative films taken on the operating room. Pain Medication: Percocet 06/25/2024 Follow-up: Discharge home, follow-up Thursday in office with Dr. French, 11/21/2022 Grafts/Implants Used: Biovance, 5 x 5 skin graft substitute Complications None Admit VTE Documentation VTE Present on Admission: Yes VTE Mechan Device Prophylaxis: SCD's VTE Pharm Prophylaxis ordered?: No
[2022-11-17 10:19] LABS: Bedside Glucose 179 mg/dL (74-106)
[2022-11-17] MEDS: Oxycodone/Apap 5/325 Tablet PO (11:50)
== END 2022-11-17 12:22 | disposition home or self-care (01) ==
LOC: SDC 07:01 → AC 07:02
PROVIDERS: Anesthesiology; PCP Student in an Organized Health Care Education/Training Program; Referring Provider Podiatrist Foot & Ankle Surgery; Visit Provider Podiatrist Foot & Ankle Surgery
PROC: (CPT 29999; principal; 2022-11-17 08:15)
DX: E11.621 Type 2 diabetes mellitus with foot ulcer (principal); L97.511 Non-pressure chronic ulcer of other part of right foot limited to breakdown of skin; E11.42 Type 2 diabetes mellitus with diabetic polyneuropathy; Z79.4 Long term (current) use of insulin; D16.31 Benign neoplasm of short bones of right lower limb; I10 Essential (primary) hypertension; K21.9 Gastro-esophageal reflux disease without esophagitis; F32.A Depression, unspecified; F41.9 Anxiety disorder, unspecified; Z79.84 Long term (current) use of oral hypoglycemic drugs; Z79.899 Other long term (current) drug therapy; Z87.891 Personal history of nicotine dependence
CPT/HCPCS: 27687; 28308; 11104; 11105; 15275; 15004; 73630; 76000; 80048; 82962; 83036; 83735; 87077; 87081; 88305; C1713; J7120; J2405

== ENCOUNTER → 2023-05-27 | Outpatient (CLI) | payer MEDICAID, SELFPAY ==
[2023-05-27 14:00] LABS: Amphetamine Urine VISTA NEGATIVE (<1000 ng/mL); Barbiturate Urine VISTA NEGATIVE (< 200 ng/mL); Benzodiazepine Urine VISTA NEGATIVE (< 200 ng/mL); Cocaine Urine VISTA NEGATIVE (< 300 ng/mL); Ecstacy Urine VISTA NEGATIVE (< 500 ng/mL); Methadone Urine VISTA NEGATIVE (< 300 ng/mL); PCP Urine VISTA NEGATIVE (< 25 ng/mL); THC Urine VISTA POSITIVE (< 50 ng/mL); Vista UDS pH Range 6
== END | disposition home or self-care (01) ==
LOC: LAB 13:08
PROVIDERS: PCP Student in an Organized Health Care Education/Training Program; Referring Provider Anesthesiology Pain Medicine; Visit Provider Anesthesiology Pain Medicine
DX: F11.20 Opioid dependence, uncomplicated (principal)
CPT/HCPCS: 80307

== ENCOUNTER → 2024-01-27 | Outpatient (CLI) | payer MEDICAID, SELFPAY ==
--- NOTE | 2024-01-27 13:05 | NEURO ---
NCS and/or EMG Patient Report Ordering Doctor: [place] French DATE OF SERVICE: 01/27/24 Sissy presents with numbness and tingling in both feet and lower legs. Electrodiagnostic findings: Right peroneal motor nerve demonstrates prolonged latency with normal amplitude and reduced conduction velocity. Left peroneal motor nerve demonstrates normal distal latency with reduced amplitude and reduced conduction velocity. Decreased right tibial motor amplitude. Left tibial motor response is within normal limits. Sensory responses were not obtainable. Prolonged tibial F?wave bilaterally. Prolonged right peroneal F?wave. Left peroneal F?wave was not obtainable. Borderline prolonged H-reflex on the right side. Needle EMG testing was performed the lower limbs. All muscles tested showed no evidence of denervation with normal motor unit action potentials. Electrodiagnostic impression: This is an abnormal study in the lower limbs 1. 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 This may be secondary to her history of diabetes. 2. No electrodiagnostic evidence is noted for lumbosacral radiculopathy Multi Select Codes Neurology Neurology Interp Codes: 77913-29 Musc test done w/n test comp (interp) (2) and 46484-15 Nrv cndj test 11-12 studies (interp)
== END | disposition home or self-care (01) ==
LOC: PSN 08:25
PROVIDERS: PCP Student in an Organized Health Care Education/Training Program; Referring Provider Podiatrist Foot & Ankle Surgery; Visit Provider Podiatrist Foot & Ankle Surgery
DX: E11.42 Type 2 diabetes mellitus with diabetic polyneuropathy (principal); M79.605 Pain in left leg; M79.604 Pain in right leg; M79.2 Neuralgia and neuritis, unspecified
CPT/HCPCS: 95886; 95912

== ENCOUNTER → 2024-08-16 | Outpatient (CLI) | payer MEDICAID, SELFPAY | END | disposition home or self-care (01) | PROVIDERS: PCP Student in an Organized Health Care Education/Training Program; Visit Provider Podiatrist Foot & Ankle Surgery | DX: S91.301A Unspecified open wound, right foot, initial encounter (principal) | CPT/HCPCS: 87070; 87077; 87186; 87205 ==

== ENCOUNTER 2024-08-22 17:49 | Emergency (ER) | payer MEDICAID, SELFPAY ==
[2024-08-22 17:51] VITALS: BP 151/90; PULSE 85; RESP 18; TEMP 36.9; O2SAT 97
[2024-08-22 18:16] LABS: Bedside Glucose 420 mg/dL (74-106)
[2024-08-22 18:47] VITALS: BMI 48.6
[2024-08-22 18:51] VITALS: BP 167/96; PULSE 81; RESP 16; TEMP 36.9; O2SAT 98
--- NOTE | 2024-08-22 19:14 | EX.ED.DYSGE1 ---
HPI History of Present Illness Chief Complaint: Hyperglycemia Informant: patient Onset/Context/Timing Onset: Days Context: Gradual Onset Timing: Continuous Quality: Lightheaded Location: Generalized Worsened by: Nothing Relieved by: Nothing Narrative Narrative: Patient presents with elevated blood sugars that have been gradually getting worse. 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 Patient states her symptoms are generalized. Patient states they are constant. Patient states nothing makes them better and nothing makes them worse. Patient has chronic wounds to her right big toe and right little toe. Patient denies any fevers but admits to some subjective chills. Patient denies any dysuria but admits to some urinary frequency. [facility] Medical History MRSA (methicillin resistant staph aureus) culture positive Wears dentures Wears glasses Post-menopausal MRSA infection Depression Anxiety Insulin dependent diabetes mellitus Diabetes Back pain Dietary restriction Gastric reflux Non-smoker History of pain when walking History of stress test Hypertension surgery of the r toe GERD (gastroesophageal reflux disease) Neuropathy IBS (irritable bowel syndrome) High cholesterol Headache, migraine Diabetes type 2, controlled Anxiety and depression Home Medications ?Medication ?Instructions ?Recorded ?Last Taken ?Type metformin 1,000 mg tablet 1,000 mg PO DAILY #30 tabs 02/25/17 Unknown Rx buspirone 10 mg tablet 10 mg PO BID 11/14/22 Unknown History insulin aspar prt-insulin aspart 25 unit subcut DINNER 11/14/22 Unknown History 100 unit/mL (70-30) subcutaneous soln (Novolog Mix 70-30 U-100 Insuln) metoprolol succinate 25 mg 25 mg PO DAILY 11/14/22 11/17/22 History tablet,extended release 24 hr sertraline 100 mg tablet 150 mg PO DAILY 11/14/22 Unknown History ciprofloxacin HCl 750 mg tablet 750 mg PO BID 2 weeks #28 tabs 08/21/24 Unknown Rx doxycycline hyclate 100 mg capsule 100 mg PO BID 2 weeks #28 caps 08/21/24 Unknown Rx atorvastatin 40 mg tablet 40 mg PO QHS 08/22/24 Unknown History gabapentin 300 mg capsule 300 mg PO TID 08/22/24 Unknown History hydrocodone-acetaminophen 5-325mg 1 tab PO TID PRN PRN pain 08/22/24 Unknown History 5mg-325mg insulin glargine 100 unit/mL (3 45 unit subcut QHS 08/22/24 Unknown History mL) subcutaneous pen (Lantus Solostar U-100 Insulin) insulin lispro 100 unit/mL 40 unit subcut TID 08/22/24 Unknown History subcutaneous pen (Humalog KwikPen (U-100) Insulin) lisdexamfetamine 30 mg capsule 30 mg PO DAILY 08/22/24 Unknown History (Vyvanse) Allergy/AdvReac Type Severity Reaction Status Date / Time brompheniramine maleate Allergy Rash Verified 08/22/24 17:50 (From Dimetapp (brompheniramine-PPA)) bupropion (From Wellbutrin) Allergy Other Verified 08/22/24 17:50 phenylpropanolamine HCl Allergy Rash Verified 08/22/24 17:50 (From Dimetapp (brompheniramine-PPA)) prochlorperazine (From Allergy Other Verified 08/22/24 17:50 Compazine) prochlorperazine edisylate Allergy Other Verified 08/22/24 17:50 (From Compazine) prochlorperazine maleate Allergy Other Verified 08/22/24 17:50 (From Compazine) Family History Mother Asthma Diabetes Cancer Sister Asthma Diabetes Surgical History History of cardiac catheterization Hx of bladder repair surgery Hx of tonsillectomy Hx of hysterectomy Social History Smoking Status: Former smoker second hand exposure: Yes alcohol intake: never substance use type: does not use ROS ROS ED Constitutional Constitutional ED: Reports chills; Denies fever(s) Eyes Eyes: Denies blurry vision or change in vision ENT ENT ED: Denies rhinorrhea or sore throat Cardiovascular Cardiovascular: Denies chest pain or palpitations Respiratory/Chest Respiratory/Chest: Denies cough or dyspnea Gastrointestinal Gastrointestinal: Reports nausea; Denies vomiting Genitourinary Genitourinary ED: Reports urinary frequency; Denies dysuria or hematuria Musculoskeletal Musculoskeletal: Denies back pain or neck pain Integumentary Reports abscess and rash Neurologic Neurologic: Reports headache(s); Denies weakness Endocrine Endocrinology: Reports polyuria Allergic/Immunologic Allergic/Immunologic ED: Denies mouth swelling or urticaria EXAM Physical Exam Const Vital Signs: 08/22/24 17:51 08/22/24 18:47 08/22/24 18:51 Temperature 98.4 F 98.4 F Temperature Source Oral Oral Pulse Rate 85 81 Respiratory Rate 18 16 Respiratory Effort Normal Respiratory Pattern Normal Blood Pressure 151/90 H 167/96 H Blood Pressure Mean 110 119 Pulse Ox 97 98 Oxygen Delivery Method Room Air Room Air 08/22/24 20:00 08/22/24 22:22 Temperature 98.0 F Temperature Source Pulse Rate 87 77 Respiratory Rate 18 18 Respiratory Effort Respiratory Pattern Blood Pressure 145/67 H Blood Pressure Mean 93 Pulse Ox 95 98 Oxygen Delivery Method Room Air Positive well nourished and well developed Constitutional Narrative: BMI is 48.7 General Appearance ED: well developed and NAD HEENT Reports moist mucous membranes Neck supple and no JVD Resp normal respiratory effort and clear to auscultation bilaterally Cardio regular rate and regular rhythm GI non-tender and non-distended Palpation: soft Extremity Extremity Narrative: There is a deep open wound on the plantar aspect of the right great toe. There is a full-thickness wound over the lateral aspect of the right little toe. There is minimal surrounding erythema. There is no discharge or drainage. Sensation is intact to light touch in all digits. Capillary refills less than 2 seconds in all digits. Neuro oriented x3, CN's II-XII intact bilaterally and no sensory deficits noted Sensorium / Orientation: alert Motor Exam: strength 5/5 throughout Psych mental status grossly normal MDM MDM MDM Narrative Medical decision making narrative: Differential diagnosis includes diabetic ketoacidosis, uncontrolled diabetes, osteomyelitis, chronic foot wounds, electrolyte abnormality, and dehydration. CBC will be obtained to assess for leukocytosis and anemia. Basic metabolic profile will be obtained to assess for electrolyte abnormality and renal function. Beta hydroxybutyrate will be obtained to assess for diabetic ketoacidosis. X-rays of the right foot will be obtained to assess for osteomyelitis. History & Record Review Additional record(s) reviewed:: Prior ED visit and Prior labs Lab Data Attestation: I reviewed the patient's lab results. Lab results narrative: CBC was reviewed and was within normal limits. Basic metabolic profile was reviewed. Glucose was elevated at 456. Anion gap was normal. CO2 was normal. Beta hydroxybutyrate was reviewed and was normal at 0.1. Urinalysis was reviewed. Urine glucose was 1000. There is no evidence of urinary tract infection or hematuria. Labs: Laboratory Results - last 24 hr 08/22/24 08/22/24 08/22/24 17:51 17:55 18:30 WBC 8.5 RBC 5.07 Hgb 12.5 Hct 38.1 MCV 75.1 L MCH 24.7 L MCHC 32.8 RDW Std Deviation 41.3 RDW Coeff of Samantha 15.8 H Plt Count 89 L MPV 10.0 Immature Gran % (Auto) 1.500 H Neut % (Auto) 80.7 H Lymph % (Auto) 12.6 L [place] % (Auto) 3.4 Eos % (Auto) 1.1 Baso % (Auto) 0.7 Absolute Neuts (auto) 6.9 Absolute Lymphs (auto) 1.07 Nucleated RBC % 0.2 Differential Comment SCANNED Sodium 134 Potassium 4.0 Chloride 96 L Carbon Dioxide 24.3 Anion Gap 13 BUN 12 Creatinine 0.75 Estim Creat Clear Calc 120.32 Est GFR (MDRD) Non-Af 100 BUN/Creatinine Ratio 16.4 Glucose 456 H* Calcium 9.6 b-Hydroxybutyric mmol/L 0.1 Urine Color Straw Urine Clarity Clear Urine pH 6.0 Ur Specific [place] 1.015 Urine Protein Negative Urine Glucose (UA) 1000 H Urine Ketones Negative Urine Occult Blood Negative Urine Nitrite Negative Urine Bilirubin Negative Urine Urobilinogen Normal Ur Leukocyte Esterase Negative Urine RBC 0-5 SEEN Urine WBC 0-5 SEEN Ur Squamous Epith Cells 0-5 SEEN Urine Bacteria 0 SEEN Urine Mucus 0 SEEN POC Glucose 420 H 08/22/24 22:02 WBC RBC Hgb Hct MCV MCH MCHC RDW Std Deviation RDW Coeff of Samantha Plt Count MPV Immature Gran % (Auto) Neut % (Auto) Lymph % (Auto) [place] % (Auto) Eos % (Auto) Baso % (Auto) Absolute Neuts (auto) Absolute Lymphs (auto) Nucleated RBC % Differential Comment Sodium Potassium Chloride Carbon Dioxide Anion Gap BUN Creatinine Estim Creat Clear Calc Est GFR (MDRD) Non-Af BUN/Creatinine Ratio Glucose Calcium b-Hydroxybutyric mmol/L Urine Color Urine Clarity Urine pH Ur Specific [place] Urine Protein Urine Glucose (UA) Urine Ketones Urine Occult Blood Urine Nitrite Urine Bilirubin Urine Urobilinogen Ur Leukocyte Esterase Urine RBC Urine WBC Ur Squamous Epith Cells Urine Bacteria Urine Mucus POC Glucose 349 H ABG Data ABG results: ABG 08/22/24 19:48 Specimen Type ARNIE Sample Site Not entered VBG pH 7.39 VBG pO2 44 H VBG HCO3 31 H VBG Total CO2 33 VBG O2 Sat (Calc) 78 H VBG Base Excess 6 H POC Mix VBG pCO2 Pt Tmp 51.1 H O2 Delivery Device Room Air Radiography Diagnostic Testing: Clinical Impression(s) from Imaging Studies Foot X-Ray 08/22/24 19:35 IMPRESSION: Ulceration of the soft tissues which may represent a wound. No acute osseous abnormalities. Reading Location: [place] [id number] X-rays of the right foot were obtained. There are 3 views. On my independent interpretation, there is ulceration of the soft tissues. There is no evidence of osteomyelitis. There is no acute fracture. Radiologist also interpreted the x-rays and agrees. Management Discussion w/another healthcare provider: [employer] (Dr. French, podiatry) Treatment and Re-Evaluation :: Patient was given a dose of Humalog here. Patient was given IV fluids and Zofran. Patient was advised of her findings. Case was discussed with Dr. French from podiatry. He is agreeable to having the patient follow-up as an outpatient. Patient was instructed to follow-up with her primary care physician for further management of her diabetes. Patient was also instructed to follow-up with podiatry as scheduled. Patient understood and was agreeable with the plan. All questions were answered. Discharge Plan Triage Chief Complaint: Hyperglycemia ED Provider: Jhon Rain Dx/Rx/DC Orders Clinical Impression: Hyperglycemia, Type 2 diabetes mellitus with foot ulcer Instructions: ED Diabetic Hyperglycemia, ED Diabetic Foot Care Prescriptions: No Action metformin 1,000 MG tablet 1,000 mg PO DAILY Qty: 30 11RF sertraline 100 mg tablet 150 mg PO DAILY buspirone 10 mg tablet 10 mg PO BID Patient Comments: TAKE 1 TABLET BY MOUTH TWICE DAILY metoprolol succinate 25 mg tablet extended release 24 hr 25 mg PO DAILY insulin asp prt-insulin aspart [Novolog Mix 70-30 U-100 Insuln] 100 unit/mL (70-30) solution 25 unit SUBCUT DINNER atorvastatin 40 mg tablet 40 mg PO QHS hydrocodone-acetaminophen 5-325 mg tablet 1 tab PO TID PRN PRN (Reason: pain) gabapentin 300 mg capsule 300 mg PO TID lisdexamfetamine [Vyvanse] 30 mg capsule 30 mg PO DAILY insulin glargine [Lantus Solostar U-100 Insulin] 100 unit/mL (3 mL) insulin pen 45 unit subcut QHS insulin lispro [Humalog KwikPen Insulin] 100 unit/mL insulin pen 40 unit subcut TID doxycycline hyclate 100 mg capsule 100 mg PO BID 14 Days Qty: 28 0RF ciprofloxacin HCl 750 mg tablet 750 mg PO BID 14 Days Qty: 28 0RF Primary Care Provider: JENNIFER FRANKEL Referrals: JENNIFER FRANKEL DO [Primary Care Provider] - 3-5 Days Print Language: Occitan Disposition Disposition: Home, Self Care Discharge Date/Time: 08/22/24 22:23
[2024-08-22] MEDS: 0.9% Normal Saline (1000mL) 1,000 ML 1000 ML IV (19:29)
--- NOTE | 2024-08-22 19:35 | RAD_ITS ---
PROCEDURE: FOOT MIN 3 VIEWS 08/22/2024 REASON FOR EXAM: INJURY/PAIN TECHNIQUE: FOOT MIN 3 VIEWS COMPARISON: None. FINDINGS: No evidence of acute fracture or dislocation. Ulceration of the plantar surface of the forefoot which may represent a wound. No significant osseous erosions. RAD/Foot min 3 Views IMPRESSION: Ulceration of the soft tissues which may represent a wound. No acute osseous a bnormalities. Reading Location: [id number]
[2024-08-22 19:47] LABS: Absolute Lymphocyte Count 1.07 X10^3/uL (0.83-4.51); Absolute Neutrophil Count 6.9 X10^3/uL (2.0-7.7); Basophil# 0.06 X10^3/uL; Basophil% 0.7 % (0-1); Eosinophil# 0.09 X10^3/uL; Eosinophils% 1.1 % (0-5); Hematocrit 38.1 % (37-47); Hemoglobin 12.5 g/dL (12.0-15.0); Lymphocyte # 1.07 X10^3/ul (0.83-4.51); Lymphocyte % 12.6 % (19-41); Mean Corp Hgb Conc 32.8 g/dL (32-36); Mean Corpuscular Hgb 24.7 pg (27.0-32.0); Mean Corpuscular Volume 75.1 fL (81-99); Monocyte# 0.29 X10^3/uL; Monocyte% 3.4 % (0-10); NRBC Flagged by Analyzer 0.2 % (0-5); Neutrophil # 6.85 X10^3/uL (2.7-7.7); Neutrophil % 80.7 % (47-70); POSITIVE COUNT YES; Platelet Count 89 K/mm3 (150-450); RBC Distribution Width CV 15.8 % (11.6-14.6); RBC Distribution Width SD 41.3 fl (35.1-43.9); Red Blood Count 5.07 M/mm3 (4.2-5.4); White Blood Count 8.5 K/mm3 (4.4-11.0)
[2024-08-22 19:48] LABS: Bacteria 0 SEEN /hpf (None Seen); Mucous, Urine 0 SEEN /hpf (<or=2+)
[2024-08-22 19:49] LABS: Differential Indicated SCAN CRITERIA MET
[2024-08-22 19:50] LABS: Color, Urine Straw (Yellow); Glucose, Dipstick 1000 mg/dl (Normal); Ketone-Dipstick Negative (Negative); Leukocyte Esterase-Dipstick Negative /ul (Negative); Nitrite-Dipstick Negative (Negative); Occult Blood-Urine Negative /ul (Negative); Protein-Dipstick Negative (Negative); Specific Gravity, Urine 1.015 (1.002-1.030); Urine Bilirubin Dipstick Negative (Negative); Urine Clarity Clear (Clear); Urine Urobilinogen Normal (Normal)
[2024-08-22 19:54] LABS: Blood Gas Specimen Type VEN; O2 Delivery Device Room Air; SITE Not entered; VBG BASE EXCESS 6 mmol/L (-1.0-3.5); VBG Bicarbonate 31 mmol/L (22-26); VBG PO2 44 mmHg (25-40); VBG SO2 78 % (50-70); VBG TCO2 33 mmol/L (23-33); VBG pCO2 51.1 mmHg (41-51); VBG pH 7.39 (7.32-7.42)
[2024-08-22 20:00] VITALS: PULSE 87; RESP 18; O2SAT 95
[2024-08-22 20:03] LABS: Red Blood Cells-Urine 0-5 SEEN /hpf (0-5); Squamous Epithelial Cells - UA 0-5 SEEN /hpf (5-10); White Blood Cells 0-5 SEEN /hpf (0-5)
[2024-08-22 20:07] LABS: BETA-HYDROXYBUTYRATE 0.1 mmol/L (0.0-0.3)
[2024-08-22 20:13] LABS: Anion Gap 13 (5-15); BUN 12 mg/dL (4-19); BUN/Creat Ratio 16.4 RATIO (10-20); Calcium,Total 9.6 mg/dL (7.6-11.0); Carbon Dioxide 24.3 mmol/L (21.0-32.0); Chloride 96 mmol/L (98-108); Creatinine, Serum 0.75 mg/dL (0.70-1.20); Differential Comment SCANNED; EST Glomerular Filtration Rate 100 (>60); Estimated Creatinine Clearance 120.32 ml/min (50-250); Glucose 456 mg/dL (70-99); Sodium Level 134 mmol/L (133-145)
[2024-08-22] MEDS: Insulin Lispro 100 UNIT/ML INSULN.PEN 10 UNIT SC (20:24)
[2024-08-22] MEDS: Ondansetron 4 MG/2 ML Vial IV (20:25)
[2024-08-22 22:22] VITALS: BP 145/67; PULSE 77; RESP 18; TEMP 36.7; O2SAT 98
[2024-08-22 22:30] LABS: Bedside Glucose 349 mg/dL (74-106)
== END 2024-08-22 22:23 | disposition home or self-care (01) ==
PROVIDERS: Emergency Provider Emergency Medicine; PCP Student in an Organized Health Care Education/Training Program; Visit Provider Emergency Medicine
DX: E11.65 Type 2 diabetes mellitus with hyperglycemia (principal); E11.621 Type 2 diabetes mellitus with foot ulcer; L97.509 Non-pressure chronic ulcer of other part of unspecified foot with unspecified severity; Z79.4 Long term (current) use of insulin; E11.40 Type 2 diabetes mellitus with diabetic neuropathy, unspecified; I10 Essential (primary) hypertension; E78.00 Pure hypercholesterolemia, unspecified; F41.9 Anxiety disorder, unspecified; F32.A Depression, unspecified; Z79.899 Other long term (current) drug therapy; Z79.84 Long term (current) use of oral hypoglycemic drugs; Z87.891 Personal history of nicotine dependence
CPT/HCPCS: 73630; 80048; 81001; 82010; 82803; 82962; 85025; 96361; 96374; 96376; 99285; A4216; J2405

== ENCOUNTER → 2024-09-12 | Outpatient (CLI) | payer MEDICAID, SELFPAY ==
[2024-09-12 17:30] LABS: Hematocrit 35.7 % (37-47); Hemoglobin 11.7 g/dL (12.0-15.0); Mean Corp Hgb Conc 32.8 g/dL (32-36); Mean Corpuscular Volume 75.0 fL (81-99); Mean Platelet Vol. 9.5 fl (6.2-12.0); POSITIVE COUNT YES; Platelet Count 98 K/mm3 (150-450); RBC Distribution Width CV 14.9 % (11.6-14.6); RBC Distribution Width SD 40.0 fl (35.1-43.9); Red Blood Count 4.76 M/mm3 (4.2-5.4); White Blood Count 10.2 K/mm3 (4.4-11.0)
[2024-09-12 18:11] LABS: Anion Gap 12 (5-15); BUN 12 mg/dL (4-19); BUN/Creat Ratio 18.0 RATIO (10-20); Calcium,Total 9.4 mg/dL (7.6-11.0); Carbon Dioxide 25.2 mmol/L (21.0-32.0); Chloride 101 mmol/L (98-108); Glucose 188 mg/dL (70-99); Potassium 3.9 mmol/L (3.3-5.1)
[2024-09-12 19:26] LABS: CRP 17.50 mg/L (0.0-3.0)
== END | disposition home or self-care (01) ==
LOC: LAB 17:08
PROVIDERS: PCP Student in an Organized Health Care Education/Training Program; Referring Provider Podiatrist Foot & Ankle Surgery; Visit Provider Podiatrist Foot & Ankle Surgery
DX: L97.519 Non-pressure chronic ulcer of other part of right foot with unspecified severity (principal)
CPT/HCPCS: 36415; 80048; 83036; 85027; 85652; 86140

== ENCOUNTER 2024-09-22 18:01 | Inpatient (IN) | payer MEDICAID, SELFPAY ==
[2024-09-22] VITALS (8 sets, daily range): BP systolic 128–190; BP diastolic 78–107; PULSE 80–109; RESP 18–24; TEMP 36.6–37.1; O2SAT 95–100; BMI 48.2; BMI 49.1
[2024-09-22] MEDS: Piperacil/Tazobactam 4.5 GM in 0.9% Normal Saline (100mL MB+) 100 ML IV (18:40)
[2024-09-22 18:50] LABS: Hematocrit 35.8 % (37-47); Hemoglobin 11.7 g/dL (12.0-15.0); Immature Granulocytes Count 0.240 X10^3/uL (0.0-0.0); Mean Corp Hgb Conc 32.7 g/dL (32-36); Mean Corpuscular Volume 74.7 fL (81-99); Mean Platelet Vol. 9.9 fl (6.2-12.0); NRBC Flagged by Analyzer 0.3 % (0-5); Platelet Count 109 K/mm3 (150-450); RBC Distribution Width CV 15.0 % (11.6-14.6); RBC Distribution Width SD 39.7 fl (35.1-43.9); Red Blood Count 4.79 M/mm3 (4.2-5.4); White Blood Count 11.6 K/mm3 (4.4-11.0)
[2024-09-22 19:08] LABS: AST(SGOT) 14 U/L (<=31); Alanine Aminotransfer ALT/SGPT 10 U/L (<=34); Albumin, Serum 4.3 g/dL (3.5-5.0); Alkaline Phosphatase 131 U/L (35-104); Anion Gap 12 (5-15); BUN 12 mg/dL (4-19); BUN/Creat Ratio 19.7 RATIO (10-20); Calcium,Total 9.6 mg/dL (7.6-11.0); Carbon Dioxide 26.3 mmol/L (21.0-32.0); Chloride 102 mmol/L (98-108); Estimated Creatinine Clearance 142.41 ml/min (50-250); Globulin 2.5 g/dL (2.2-4.2); Glucose 72 mg/dL (70-99); Potassium 3.6 mmol/L (3.3-5.1)
[2024-09-22 19:36] LABS: Prothrombin Time (Protime)PT. 13.1 SECONDS (11.7-14.9)
[2024-09-22 19:37] LABS: Partial Thromboplast Time 26.0 Seconds (24.1-36.2)
[2024-09-22] MEDS: Vancomycin HCl 2,000 MG in 0.9% Normal Saline (500mL Bag) 500 ML 250 MG IV (19:42)
[2024-09-22 19:44] LABS: CRP 8.30 mg/L (0.0-3.0)
[2024-09-22] MEDS: 0.9% Normal Saline (1000mL) 1,000 ML 70 ML IV (21:22)
[2024-09-22 21:53] LABS: Magnesium 1.4 mg/dL (1.5-2.2)
[2024-09-22] MEDS: Lactobacillis Acidophilus 1 CAP PO (22:41)
[2024-09-22] MEDS: Insulin Glargine-YFGN 100 UNIT/ML Pen 30 UNIT SC (22:48)
[2024-09-23] VITALS (15 sets, daily range): BP systolic 113–154; BP diastolic 65–96; PULSE 74–99; RESP 16–24; TEMP 36.3–36.9; O2SAT 93–99; BMI 49.1; BMI 50.5
[2024-09-23 03:19] LABS: Staph aureus DNA By PCR POSITIVE (Negative)
[2024-09-23] MEDS: Vancomycin HCl 1,500 MG in 0.9% Normal Saline (500mL Bag) 500 ML 250 MG IV ×3 (03:47→21:58)
[2024-09-23] MEDS: 0.9% Saline Lock 10 ML Syringe IV (03:48)
[2024-09-23 06:18] LABS: Differential Indicated SCAN CRITERIA MET; Hematocrit 32.3 % (37-47); Hemoglobin 10.2 g/dL (12.0-15.0); Immature Granulocytes Count 0.240 X10^3/uL (0.0-0.0); Mean Corp Hgb Conc 31.6 g/dL (32-36); Mean Corpuscular Volume 75.5 fL (81-99); Mean Platelet Vol. 10.1 fl (6.2-12.0); NRBC Flagged by Analyzer 0.2 % (0-5); POSITIVE COUNT YES; Platelet Count 95 K/mm3 (150-450); RBC Distribution Width CV 15.4 % (11.6-14.6); RBC Distribution Width SD 40.4 fl (35.1-43.9); Red Blood Count 4.28 M/mm3 (4.2-5.4); White Blood Count 10.4 K/mm3 (4.4-11.0)
[2024-09-23] MEDS: Piperacil/Tazobactam 3.375 GM in 0.9% Normal Saline (50mL MB+) 50 ML IV ×3 (06:27→21:06)
[2024-09-23] MEDS: Magnesium Sulfate 2 GM in Dextrose 5%-Water (100mL Bag) 100 ML IV (06:28)
[2024-09-23 06:41] LABS: AST(SGOT) 14 U/L (<=31); Alanine Aminotransfer ALT/SGPT 7 U/L (<=34); Albumin, Serum 3.7 g/dL (3.5-5.0); Alkaline Phosphatase 113 U/L (35-104); Anion Gap 11 (5-15); BUN 11 mg/dL (4-19); BUN/Creat Ratio 19.7 RATIO (10-20); Calcium,Total 8.5 mg/dL (7.6-11.0); Carbon Dioxide 24.4 mmol/L (21.0-32.0); Chloride 105 mmol/L (98-108); Differential Comment SCANNED; Estimated Creatinine Clearance 159.10 ml/min (50-250); Globulin 2.1 g/dL (2.2-4.2); Glucose 161 mg/dL (70-99); Potassium 3.7 mmol/L (3.3-5.1)
[2024-09-23] MEDS: Metoprolol(XL)Succ 25 MG Tablet PO (08:13)
[2024-09-23] MEDS: 0.9% Normal Saline (1000mL) 1,000 ML 15 ML IV (09:08)
[2024-09-23] MEDS: Zinc Sulfate 50 mg zinc (220 mg) ORAL capsule PO (12:42)
[2024-09-23] MEDS: Cholecalciferol (Vit D3) 125 MCG CAPSULE (5,000 UNITS) PO (12:42)
[2024-09-23 13:56] LABS: Magnesium 1.8 mg/dL (1.5-2.2)
[2024-09-23] MEDS: Lactobacillis Acidophilus 1 CAP PO ×3 (13:58→21:08)
[2024-09-23] MEDS: Insulin Human 75/25 Kwickpen 15 UNIT SC (17:10)
[2024-09-23] MEDS: Vancomycin Trough/Random Due 1 LAB MC (20:01)
[2024-09-23] MEDS: Insulin Glargine-YFGN 100 UNIT/ML Pen 30 UNIT SC (21:07)
[2024-09-23 21:20] LABS: Vancomycin, Trough Level 20.4 ug/mL (5.0-15.0)
[2024-09-24] VITALS (7 sets, daily range): BP systolic 134–161; BP diastolic 65–99; PULSE 75–87; RESP 16–18; TEMP 36.6–37.3; O2SAT 94–96; BMI 50.6
[2024-09-24] MEDS: Vancomycin HCl 1,500 MG in 0.9% Normal Saline (500mL Bag) 500 ML 250 MG IV ×2 (03:17→11:00)
[2024-09-24] MEDS: 0.9% Saline Lock 10 ML Syringe IV ×2 (03:19→09:07)
[2024-09-24] MEDS: Piperacil/Tazobactam 3.375 GM in 0.9% Normal Saline (50mL MB+) 50 ML IV ×3 (06:16→21:04)
[2024-09-24 07:12] LABS: Hematocrit 31.0 % (37-47); Hemoglobin 9.8 g/dL (12.0-15.0); Immature Granulocytes Count 0.200 X10^3/uL (0.0-0.0); Mean Corp Hgb Conc 31.6 g/dL (32-36); Mean Corpuscular Volume 77.5 fL (81-99); Mean Platelet Vol. 9.4 fl (6.2-12.0); NRBC Flagged by Analyzer 0.3 % (0-5); POSITIVE COUNT YES; Platelet Count 88 K/mm3 (150-450); RBC Distribution Width CV 15.9 % (11.6-14.6); RBC Distribution Width SD 43.9 fl (35.1-43.9); Red Blood Count 4.00 M/mm3 (4.2-5.4); White Blood Count 10.7 K/mm3 (4.4-11.0)
[2024-09-24 07:34] LABS: Anion Gap 9 (5-15); BUN 15 mg/dL (4-19); BUN/Creat Ratio 17.3 RATIO (10-20); Calcium,Total 7.9 mg/dL (7.6-11.0); Carbon Dioxide 22.6 mmol/L (21.0-32.0); Chloride 106 mmol/L (98-108); Estimated Creatinine Clearance 103.84 ml/min (50-250); Glucose 205 mg/dL (70-99); Potassium 4.4 mmol/L (3.3-5.1)
[2024-09-24] MEDS: Lactobacillis Acidophilus 1 CAP PO ×4 (09:07→21:04)
[2024-09-24] MEDS: Metoprolol(XL)Succ 25 MG Tablet PO (09:07)
[2024-09-24] MEDS: Cholecalciferol (Vit D3) 125 MCG CAPSULE (5,000 UNITS) PO (09:07)
[2024-09-24] MEDS: Zinc Sulfate 50 mg zinc (220 mg) ORAL capsule PO (09:07)
[2024-09-24] MEDS: 0.9% Normal Saline (250mL Bag) 250 ML 15 ML IV (09:08)
[2024-09-24] MEDS: Insulin Human 75/25 Kwickpen 15 UNIT SC (17:00)
[2024-09-24] MEDS: Vancomycin Trough/Random Due 1 LAB MC (19:43)
[2024-09-24 19:45] LABS: Vancomycin, Trough Level 34.7 ug/mL (5.0-15.0)
[2024-09-24] MEDS: Insulin Glargine-YFGN 100 UNIT/ML Pen 30 UNIT SC (21:13)
[2024-09-25 03:00] VITALS: BP 128/87; PULSE 86; RESP 18; TEMP 36.4; O2SAT 95
[2024-09-25 05:45] VITALS: BMI 50.5
[2024-09-25] MEDS: Piperacil/Tazobactam 3.375 GM in 0.9% Normal Saline (50mL MB+) 50 ML IV ×3 (06:37→22:37)
[2024-09-25 06:39] LABS: Hematocrit 29.5 % (37-47); Hemoglobin 9.4 g/dL (12.0-15.0); Immature Granulocytes Count 0.160 X10^3/uL (0.0-0.0); Mean Corp Hgb Conc 31.9 g/dL (32-36); Mean Corpuscular Volume 76.2 fL (81-99); Mean Platelet Vol. 9.9 fl (6.2-12.0); NRBC Flagged by Analyzer 0.2 % (0-5); POSITIVE COUNT YES; Platelet Count 79 K/mm3 (150-450); RBC Distribution Width CV 15.9 % (11.6-14.6); RBC Distribution Width SD 43.0 fl (35.1-43.9); Red Blood Count 3.87 M/mm3 (4.2-5.4); White Blood Count 9.4 K/mm3 (4.4-11.0)
[2024-09-25 07:04] LABS: Vancomycin, Random Level 28.6 ug/mL (0.0-15.0)
[2024-09-25 07:12] LABS: Anion Gap 11 (5-15); BUN 22 mg/dL (4-19); BUN/Creat Ratio 11.3 RATIO (10-20); Calcium,Total 8.4 mg/dL (7.6-11.0); Carbon Dioxide 21.7 mmol/L (21.0-32.0); Chloride 105 mmol/L (98-108); Estimated Creatinine Clearance 47.86 ml/min (50-250); Glucose 197 mg/dL (70-99); Potassium 4.4 mmol/L (3.3-5.1)
[2024-09-25] MEDS: 0.9% Normal Saline (1000mL) 1,000 ML 125 ML IV ×2 (07:46→16:01)
[2024-09-25 07:54] VITALS: PULSE 85
[2024-09-25] MEDS: Metoprolol(XL)Succ 25 MG Tablet PO (07:54)
[2024-09-25] MEDS: Lactobacillis Acidophilus 1 CAP PO ×4 (07:55→22:36)
[2024-09-25] MEDS: Zinc Sulfate 50 mg zinc (220 mg) ORAL capsule PO (07:56)
[2024-09-25] MEDS: Cholecalciferol (Vit D3) 125 MCG CAPSULE (5,000 UNITS) PO (07:57)
[2024-09-25 08:00] VITALS: BP 125/70; PULSE 85; RESP 19; TEMP 36.8; O2SAT 91
[2024-09-25 14:46] VITALS: BP 159/93; PULSE 86; RESP 20; TEMP 36.8; O2SAT 92
[2024-09-25] MEDS: Insulin Human 75/25 Kwickpen 15 UNIT SC (16:04)
[2024-09-25 18:38] LABS: Vancomycin, Random Level 21.4 ug/mL (0.0-15.0)
[2024-09-25 19:22] VITALS: PULSE 91; RESP 18
[2024-09-25 20:00] VITALS: BP 138/80; PULSE 95; RESP 19; TEMP 37.4; O2SAT 94
[2024-09-25] MEDS: Insulin Glargine-YFGN 100 UNIT/ML Pen 30 UNIT SC (22:45)
[2024-09-26] VITALS (10 sets, daily range): BP systolic 138–155; BP diastolic 80–88; PULSE 75–95; RESP 18–20; TEMP 36.2–36.9; O2SAT 93–98; BMI 51.7
[2024-09-26 06:21] LABS: Hematocrit 27.9 % (37-47); Hemoglobin 8.9 g/dL (12.0-15.0); Immature Granulocytes Count 0.130 X10^3/uL (0.0-0.0); Mean Corp Hgb Conc 31.9 g/dL (32-36); Mean Corpuscular Volume 76.9 fL (81-99); Mean Platelet Vol. 9.3 fl (6.2-12.0); NRBC Flagged by Analyzer 0 % (0-5); POSITIVE COUNT YES; Platelet Count 77 K/mm3 (150-450); RBC Distribution Width CV 15.9 % (11.6-14.6); RBC Distribution Width SD 43.5 fl (35.1-43.9); Red Blood Count 3.63 M/mm3 (4.2-5.4); White Blood Count 8.9 K/mm3 (4.4-11.0)
[2024-09-26 06:41] LABS: Anion Gap 11 (5-15); BUN 23 mg/dL (4-19); BUN/Creat Ratio 10.2 RATIO (10-20); Calcium,Total 8.3 mg/dL (7.6-11.0); Carbon Dioxide 20.4 mmol/L (21.0-32.0); Chloride 107 mmol/L (98-108); Estimated Creatinine Clearance 41.65 ml/min (50-250); Glucose 136 mg/dL (70-99); Potassium 4.3 mmol/L (3.3-5.1)
[2024-09-26] MEDS: Piperacil/Tazobactam 3.375 GM in 0.9% Normal Saline (50mL MB+) 50 ML IV ×3 (06:45→22:50)
[2024-09-26 06:49] LABS: Vancomycin, Random Level 17.7 ug/mL (0.0-15.0)
[2024-09-26] MEDS: Metoprolol(XL)Succ 25 MG Tablet PO (08:07)
[2024-09-26] MEDS: Lactobacillis Acidophilus 1 CAP PO ×4 (08:07→22:49)
[2024-09-26] MEDS: Cholecalciferol (Vit D3) 125 MCG CAPSULE (5,000 UNITS) PO (08:08)
[2024-09-26] MEDS: Zinc Sulfate 50 mg zinc (220 mg) ORAL capsule PO (08:08)
[2024-09-26] MEDS: Linezolid 600 MG 600 MG/300 ML BAG 200 MG IV ×2 (10:23→21:06)
[2024-09-26] MEDS: 0.9% Normal Saline (250mL Bag) 250 ML 15 ML IV (10:30)
[2024-09-26] MEDS: 0.9% Saline Lock 10 ML Syringe IV ×2 (10:30→22:50)
[2024-09-26] MEDS: Insulin Human 75/25 Kwickpen 15 UNIT SC (16:46)
[2024-09-26 17:05] LABS: Mucous, Urine 0 SEEN /hpf (<or=2+)
[2024-09-26 17:07] LABS: Color, Urine Yellow (Yellow); Glucose, Dipstick Normal (Normal); Ketone-Dipstick Negative (Negative); Leukocyte Esterase-Dipstick Negative /ul (Negative); Nitrite-Dipstick Negative (Negative); Occult Blood-Urine Negative /ul (Negative); Protein-Dipstick 30 mg/dl (Negative); Specific Gravity, Urine 1.015 (1.002-1.030); Urine Bilirubin Dipstick Negative (Negative)
[2024-09-26 18:20] LABS: Red Blood Cells-Urine 0-5 SEEN /hpf (0-5); Squamous Epithelial Cells - UA 5-10 SEEN /hpf (5-10); Yeast-Urine 1+ /hpf (None Seen)
[2024-09-26 20:30] LABS: Creatinine, Urine (random) 67.70 mg/dL (28.00-217.00); Protein, Urine (Random) 12.9 mg/dL (0.0-12.0); Protein:Creat Ratio 191 mg/g CRE (0-200)
[2024-09-26] MEDS: Insulin Glargine-YFGN 100 UNIT/ML Pen 30 UNIT SC (22:59)
[2024-09-27 03:46] VITALS: BP 133/78; PULSE 79; RESP 18; TEMP 36.6; O2SAT 94
[2024-09-27 03:49] VITALS: BMI 53.1
[2024-09-27] MEDS: Piperacil/Tazobactam 3.375 GM in 0.9% Normal Saline (50mL MB+) 50 ML IV ×3 (06:11→23:01)
[2024-09-27 06:22] LABS: Hematocrit 28.9 % (37-47); Hemoglobin 9.1 g/dL (12.0-15.0); Immature Granulocytes Count 0.180 X10^3/uL (0.0-0.0); Mean Corp Hgb Conc 31.5 g/dL (32-36); Mean Corpuscular Volume 77.3 fL (81-99); Mean Platelet Vol. 10.1 fl (6.2-12.0); NRBC Flagged by Analyzer 0.2 % (0-5); POSITIVE COUNT YES; Platelet Count 82 K/mm3 (150-450); RBC Distribution Width CV 15.9 % (11.6-14.6); RBC Distribution Width SD 44.2 fl (35.1-43.9); Red Blood Count 3.74 M/mm3 (4.2-5.4); White Blood Count 9.7 K/mm3 (4.4-11.0)
[2024-09-27 06:34] LABS: Anion Gap 11 (5-15); BUN 27 mg/dL (4-19); BUN/Creat Ratio 11.0 RATIO (10-20); Calcium,Total 8.6 mg/dL (7.6-11.0); Carbon Dioxide 21.2 mmol/L (21.0-32.0); Chloride 105 mmol/L (98-108); Estimated Creatinine Clearance 39.36 ml/min (50-250); Glucose 191 mg/dL (70-99); Potassium 4.6 mmol/L (3.3-5.1)
[2024-09-27 08:00] VITALS: BP 148/88; PULSE 83; RESP 16; TEMP 36.5; O2SAT 92
[2024-09-27 08:08] VITALS: PULSE 78; RESP 16; O2SAT 95
[2024-09-27 08:38] VITALS: PULSE 78
[2024-09-27] MEDS: Cholecalciferol (Vit D3) 125 MCG CAPSULE (5,000 UNITS) PO (08:38)
[2024-09-27] MEDS: Metoprolol(XL)Succ 25 MG Tablet PO (08:38)
[2024-09-27] MEDS: Lactobacillis Acidophilus 1 CAP PO ×4 (08:38→23:01)
[2024-09-27] MEDS: Linezolid 600 MG 600 MG/300 ML BAG 200 MG IV ×2 (10:23→21:01)
[2024-09-27 13:59] VITALS: BP 137/89; PULSE 73; RESP 15; TEMP 36.6; O2SAT 93
[2024-09-27] MEDS: Insulin Human 75/25 Kwickpen 15 UNIT SC (16:56)
[2024-09-27 20:00] VITALS: BP 148/86; PULSE 65; RESP 18; TEMP 36.7; O2SAT 95
[2024-09-27] MEDS: Insulin Glargine-YFGN 100 UNIT/ML Pen 30 UNIT SC (23:04)
[2024-09-28] MEDS: 0.9% Normal Saline (250mL Bag) 250 ML 15 ML IV (05:20)
[2024-09-28] MEDS: Piperacil/Tazobactam 3.375 GM in 0.9% Normal Saline (50mL MB+) 50 ML IV ×2 (05:20→14:32)
[2024-09-28 05:24] VITALS: BP 149/82; PULSE 74; RESP 18; TEMP 36.8; O2SAT 94
[2024-09-28 05:48] VITALS: BMI 53.4
[2024-09-28 08:00] VITALS: BP 147/87; PULSE 80; RESP 14; TEMP 36.7; O2SAT 93
[2024-09-28 08:05] LABS: Hematocrit 28.3 % (37-47); Hemoglobin 9.1 g/dL (12.0-15.0); Immature Granulocytes Count 0.130 X10^3/uL (0.0-0.0); Mean Corp Hgb Conc 32.2 g/dL (32-36); Mean Corpuscular Volume 76.1 fL (81-99); Mean Platelet Vol. 9.3 fl (6.2-12.0); NRBC Flagged by Analyzer 0 % (0-5); POSITIVE COUNT YES; Platelet Count 90 K/mm3 (150-450); RBC Distribution Width CV 15.9 % (11.6-14.6); RBC Distribution Width SD 43.2 fl (35.1-43.9); Red Blood Count 3.72 M/mm3 (4.2-5.4); White Blood Count 9.0 K/mm3 (4.4-11.0)
[2024-09-28 08:17] LABS: Differential Indicated SCAN CRITERIA MET
[2024-09-28 08:32] LABS: Anion Gap 12 (5-15); BUN 30 mg/dL (4-19); BUN/Creat Ratio 12.5 RATIO (10-20); Calcium,Total 8.9 mg/dL (7.6-11.0); Carbon Dioxide 21.0 mmol/L (21.0-32.0); Chloride 106 mmol/L (98-108); Estimated Creatinine Clearance 39.38 ml/min (50-250); Glucose 151 mg/dL (70-99); Potassium 4.7 mmol/L (3.3-5.1)
[2024-09-28 08:48] LABS: Polychromasia 1+
[2024-09-28 09:14] VITALS: PULSE 80
[2024-09-28] MEDS: Metoprolol(XL)Succ 25 MG Tablet PO (09:14)
[2024-09-28] MEDS: Lactobacillis Acidophilus 1 CAP PO ×2 (09:14→14:32)
[2024-09-28] MEDS: Cholecalciferol (Vit D3) 125 MCG CAPSULE (5,000 UNITS) PO (09:15)
[2024-09-28] MEDS: Linezolid 600 MG 600 MG/300 ML BAG 200 MG IV (09:53)
[2024-09-28 14:00] VITALS: BP 153/82; PULSE 67; RESP 16; TEMP 36.7; O2SAT 97
== END 2024-09-28 17:27 | disposition home or self-care (01) | DRG 314 ==
LOC: ED 20:03 → MS3 20:33
PROVIDERS: Nurse Practitioner Adult Health; Podiatrist Foot & Ankle Surgery; Student in an Organized Health Care Education/Training Program; Admitting Provider Internal Medicine; Emergency Provider Emergency Medicine; PCP Student in an Organized Health Care Education/Training Program; Referring Provider Emergency Medicine; Visit Provider Internal Medicine
PROC: 0Y6P0Z0 Detachment at Right 1st Toe, Complete, Open Approach (ICD-10-PCS; principal; 2024-09-23 09:15)
DX: E11.69 Type 2 diabetes mellitus with other specified complication (principal); D69.6 Thrombocytopenia, unspecified; Z68.43 Body mass index [BMI] 50.0-59.9, adult; E11.42 Type 2 diabetes mellitus with diabetic polyneuropathy; I10 Essential (primary) hypertension; L97.514 Non-pressure chronic ulcer of other part of right foot with necrosis of bone; M86.172 Other acute osteomyelitis, left ankle and foot; N17.9 Acute kidney failure, unspecified; E11.621 Type 2 diabetes mellitus with foot ulcer; F41.8 Other specified anxiety disorders; K21.9 Gastro-esophageal reflux disease without esophagitis; K58.9 Irritable bowel syndrome, unspecified; E78.5 Hyperlipidemia, unspecified; Z79.4 Long term (current) use of insulin; E83.42 Hypomagnesemia; B95.62 Methicillin resistant Staphylococcus aureus infection as the cause of diseases classified elsewhere; E66.813 Obesity, class 3; F90.9 Attention-deficit hyperactivity disorder, unspecified type; T36.8X5A Adverse effect of other systemic antibiotics, initial encounter; Z86.14 Personal history of Methicillin resistant Staphylococcus aureus infection; Z79.84 Long term (current) use of oral hypoglycemic drugs; Z79.899 Other long term (current) drug therapy; Z87.891 Personal history of nicotine dependence
CPT/HCPCS: 36415; 73630; 73660; 76000; 76770; 80048; 80053; 80202; 81001; 82570; 82962; 83605; 83735; 84100; 84156; 84443; 85025; 85610; 85652; 85730; 86140; 87040; 87070; 87075; 87077; 87086; 87176; 87186; 87205; 87640; 88305; 88311; 93005; 94640; 94668; 97803; 99284; J2020; A4216